=== PATIENT | male | born 1990 | race Caucasian/White ===

== ENCOUNTER → 2018-09-08 | Outpatient (CLI) | payer OTHER | LOC: M OUTALCOH 11:36 | PROVIDERS: ATTEND Psychiatry & Neurology Psychiatry | DX: F10.20 Alcohol dependence, uncomplicated (principal); F13.20 Sedative, hypnotic or anxiolytic dependence, uncomplicated ==

== ENCOUNTER 2019-12-22 23:09 | Inpatient (IN) | payer BC, OTHER, SELFPAY ==
[~2019-12-22] VITALS: Ht 185.4 cm; Wt 112.6 kg
[2019-12-22] MEDS ORDERED: QUET100T2 PO (23:19)
[2019-12-22] MEDS ORDERED: ALPR0.5T3 PO (23:19)
[2019-12-23] VITALS (19 sets, daily range): BP systolic 137–176; BP diastolic 77–113; O2SAT 97
[2019-12-23 00:43] LABS: ALBUMIN 3.3 GM/DL (3.2-5.2); ALT/SGPT 254 U/L (12-78); BILIRUBIN,DIRECT 0.1 MG/DL (0.0-0.2); BILIRUBIN,TOTAL 0.3 MG/DL (0.2-1.0); ETHYL ALCOHOL (ETHANOL) < 0.003 % (0.000-0.010); TOTAL PROTEIN 6.1 GM/DL (6.4-8.2)
[2019-12-23 00:50] LABS: BASO % 0.3 % (0.0-1.0); EOS # 0.1 10^3/uL (0.0-0.5); EOS % 0.5 % (0.0-3.0); HEMATOCRIT 29.6 % (42.0-52.0); HEMOGLOBIN 10.7 g/dl (13.5-17.5); LYMPH % 9.8 % (24.0-44.0); MEAN CORPUSCULAR HEMOGLOBIN 29.6 pg (27.0-33.0); MEAN CORPUSCULAR HGB CONC 36.1 g/dl (32.0-36.5); MEAN CORPUSCULAR VOLUME 81.8 fl (80.0-96.0); MONO # 0.5 10^3/uL (0.0-0.8); MONO % 5.4 % (0.0-5.0); NEUTROPHILS # 8.3 10^3/uL (1.5-8.5); NEUTROPHILS % 83.5 % (36.0-66.0); PLATELET COUNT, AUTOMATED 166 10^3/uL (150-450); RED BLOOD COUNT 3.62 10^6/uL (4.30-6.10); WHITE BLOOD COUNT 9.9 10^3/uL (4.0-10.0)
[2019-12-23] MEDS ORDERED: FUROSEMIDE 40MG/4ML VIAL (J1940) IV ONE (01:00)
[2019-12-23 01:12] LABS: ACETAMINOPHEN LEVEL < 2.0 UG/ML (10.0-30.0); MAGNESIUM LEVEL 2.8 MG/DL (1.8-2.4); SALICYLATE LEVEL < 1.7 MG/DL (5.0-30.0)
[2019-12-23] MEDS ORDERED: hydrALAZINE 20MG/ML 1ML VIAL (J0360 PER 20MG) IV ONE (01:30)
--- NOTE | 2019-12-23 01:39 | REP ---
Clinical: Shortness of breath. Comparison: 10/10/2005. Findings: Evaluation is limited by portable technique and underpenetration which accentuate the pulmonary vasculature. Cardiomegaly is suggested and early pulmonary vascular congestion/interstitial edema cannot be excluded. No discrete focal consolidation. No obvious effusion. No pneumothorax. Skeletal structures are intact. Impression: Cardiomegaly. Cannot exclude pulmonary vascular congestion/interstitial edema. Electronically Signed by Jose Luis Collins MD 12/23/2019 01:30 A
[2019-12-23 01:45] LABS: CPK CREATINE PHOSPHOKINASE 6295 U/L (39-308); MB/CK RELATIVE INDEX 0.17 (< OR =4); TROPONIN I 0.04 NG/ML (< 0.10)
[2019-12-23 02:16] LABS: APPEARANCE, URINE CLEAR (CLEAR); BACTERIA, URINE AUTO NEGATIVE (NEGATIVE); BILIRUBIN, URINE AUTO NEGATIVE (NEGATIVE); BLOOD, URINE BLOOD 2+ (NEGATIVE); COLOR, URINE YELLOW (YELLOW); GLUCOSE, URINE (UA) AUTO NEGATIVE (NEGATIVE); KETONE, URINE AUTO NEGATIVE (NEGATIVE); LEUKOCYTE ESTERASE, URINE AUTO NEGATIVE (NEGATIVE); NITRITE, URINE AUTO NEGATIVE (NEGATIVE); PROTEIN, URINE AUTO 2+ mg/dL (NEGATIVE); RBC, URINE AUTO 2 /HPF (0-3); SPECIFIC GRAVITY URINE AUTO 1.008 (1.002-1.035); SQUAMOUS EPITHELIAL CELL UR AU 0 /HPF (0-6); UROBILINOGEN, URINE AUTO 0.2 mg/dL (0.0-2.0); WBC, URINE AUTO 3 /HPF (0-3)
[2019-12-23 02:24] LABS: AMPHETAMINES LEVEL URINE NEGATIVE (NEGATIVE); BARBITURATES URINE NEGATIVE (NEGATIVE); BENZODIAZEPINES URINE POSITIVE (NEGATIVE); CANNABINOIDS URINE NEGATIVE (NEGATIVE); COCAINE METABOLITE URINE NEGATIVE (NEGATIVE); METHADONE URINE NEGATIVE (NEGATIVE); OPIATES URINE NEGATIVE (NEGATIVE); PHENCYCLIDINE URINE NEGATIVE (NEGATIVE)
--- NOTE | 2019-12-23 02:54 | HPEPDOC ---
[facility] Medical History & Physical Date of Admission Dec 23, 2019 Date of Service: Dec 23, 2019 Attending Physician: MONSE VERDUZCO MD History and Physical CHIEF COMPLAINT: Shortness of breath HISTORY OF PRESENT ILLNESS: 29-year-old male with past medical history of insomnia and anxiety presents with worsening shortness of breath for the past few days. His symptoms started 2-3 days ago with dyspnea, nausea/dry heaving, progressive fatigue and dry cough. Patient also reports a weight gain of 20 pounds over the past week or so. He went camping 5 days ago, apparently "fell" while he was camping and has cuts and bruises over his entire body. He also reports decreased urine output for the past week or so. He has no other symptoms at this time. He denies any chest pain, abdominal pain or diarrhea. In the ER, he is found to have acute renal failure and imaging consistent with cardiomegaly/congestive heart failure. Of note, he was a heavy drinker previously, reportedly quit 1 year ago. 10 point review of system is negative except for above PAST MEDICAL HISTORY: 1. Anxiety/insomnia. PAST SURGICAL HISTORY: 1. Tonsillectomy. SOCIAL HISTORY: Current smoker. Previous alcoholic, quit 1 year ago. Denies drug use FAMILY HISTORY: Father had heart disease ALLERGIES: Please see below. HOME MEDICATIONS: Please see below. PHYSICAL EXAMINATION: VITAL SIGNS: Please see below. GENERAL: No distress, obese HEENT: Normocephalic, atraumatic, moist mucous membranes NECK: Positive JVD CARDIOVASCULAR EXAMINATION: S1, S2, no murmurs RESPIRATORY EXAMINATION: Diminished, scattered rhonchi, poor air movement, no wheezing ABDOMINAL EXAMINATION: Soft, nontender, nondistended, positive bowel sounds EXTREMITIES: Bilateral lower shoulder pitting edema SKIN: Multiple scrapes and bruises along with ecchymosis over his entire body NEUROLOGICAL EXAMINATION: Alert and oriented 3, no focal deficits PSYCHIATRIC EXAMINATION: Calm and cooperative LABORATORY DATA: See below. IMAGING: Chest x-ray consistent with cardiomegaly MICROBIOLOGY: Please see below. ASSESSMENT: 29-year-old male with past medical history of anxiety and insomnia is being admitted for acute renal failure, cardiomegaly, congestive heart failure, hyponatremia. PLAN: 1. Congestive heart failure/cardiomegaly. Acute, unknown etiology, possibly viral, EKG without acute ST-T wave changes, vital stable, no indication for stat echocardiogram at this time, routine echocardiogram ordered, Lasix 40 mg IV every 6 hours, strict I's and O's, fluid restriction of 1200 ml day. 2. Acute hypoxemic respiratory failure. Patient currently on Ventimask on 40% FiO2, desating into the mid to low 80s, will switch over to BiPAP to assist with work of breathing as well as congestive heart failure. 3. Acute renal failure. Unknown etiology,? Cardiorenal, oliguric, will monitor with IV Lasix, consider nephrology consult in the morning. Patient has no acute indication for renal replacement therapy at this time. 4. Severe hyponatremia. unknown etiology, would not expect such severe hyponatremia from congestive heart failure/renal failure, reportedly no longer drinking alcohol, asymptomatic,? Psychogenic polydipsia in addition to CHF/CHANO/alcohol, repeat BMP. 5. Elevated LFTs. Possibly congestive hepatopathy, will trend. DVT prophylaxis: SCDs. GI prophylaxis: Not needed Vital Signs Vital Signs Date Time Temp Pulse Resp B/P (MAP) Pulse Ox O2 Delivery O2 Flow Rate FiO2 12/23/19 02:30 76 22 161/97 (118) 87 Venturi Mask 40 12/23/19 01:34 15.0 12/22/19 23:12 97.4 Laboratory Data Labs 24H Laboratory Tests 2 12/23/19 00:02: Immature Granulocyte % (Auto) 0.5, Neutrophils (%) (Auto) 83.5H, Lymphocytes (%) (Auto) 9.8L, Monocytes (%) (Auto) 5.4H, Eosinophils (%) (Auto) 0.5, Basophils (%) (Auto) 0.3, Neutrophils # (Auto) 8.3, Lymphocytes # (Auto) 1.0L, Monocytes # (Auto) 0.5, Eosinophils # (Auto) 0.1, Basophils # (Auto) 0.0, Nucleated Red Blood Cells % (auto) 0.0, Magnesium Level 2.8H, Total Bilirubin 0.3, Direct Bilirubin 0.1, Aspartate Amino Transf (AST/SGOT) 204H, Alanine Aminotransferase (ALT/SGPT) 254H, Alkaline Phosphatase 58, Total Creatine Kinase 6295H, Creatine Kinase MB 11.0H, Creatine Kinase MB Relative Index 0.17, Troponin I 0.04, Total Protein 6.1L, Albumin 3.3, Albumin/Globulin Ratio 1.2, Salicylates Level < 1.7L, Acetaminophen Level < 2.0L, Ethyl Alcohol Level < 0.003 12/23/19 00:19: POC Glucose (Misc Panel) 110H, POC Sodium (Misc Panel) 116*L, POC Potassium (Misc Panel) 3.9, POC Chloride (Misc Panel) 77L, POC Total CO2 (Misc Panel) 22.0L, POC Blood Urea Nitrogen (Misc Panel 78H, POC Ionized Calcium (Misc Panel) 3.7L, POC Lactate (Misc Panel) 1.08, POC Creatinine (Misc Panel) 13.0H, POC Hematocrit (Misc Panel) 33.0L 12/23/19 00:20: POC Total CO2 (Misc Panel) 23.0, POC pH (Misc Panel) 7.442, POC Base Excess (Misc Panel) -2.0, POC Saturated Percent O2 (Misc) 88L, POC pO2 (Misc Panel) 52.0L, POC pCO2 (Misc Panel) 32.8L, POC HCO3 (Misc Panel) 22.4 12/23/19 00:22: POC Prothrombin Time (Misc) 13.7, POC INR (Misc) 1.1 12/23/19 01:44: Urine Color YELLOW, Urine Appearance CLEAR, Urine pH 5.0, Urine Specific [place] 1.008, Urine Protein 2+H, Urine Glucose (Auto)(UA) NEGATIVE, Urine Ketones (Auto) NEGATIVE, Urine Blood 2+H, Urine Nitrite NEGATIVE, Urine Bilirubin NEGATIVE, Urine Urobilinogen 0.2, Urine Leukocyte Esterase (Auto) NEGATIVE, Urine WBC (Auto) 3, Urine RBC (Auto) 2, Urine Hyaline Casts (Auto) 0, Urine Bacteria (Auto) NEGATIVE, Urine Squamous Epithelial Cells 0, Urine Sperm (Auto) , Urine Opiates Screen NEGATIVE, Urine Methadone Screen NEGATIVE, Urine Barbiturates Screen NEGATIVE, Urine Phencyclidine Screen NEGATIVE, Urine Amphetamines Screen NEGATIVE, Urine Benzodiazepines Screen POSITIVEH, Urine Cocaine Metabolite Screen NEGATIVE, Urine Cannabinoids Screen NEGATIVE CBC/BMP Laboratory Tests 12/23/19 00:02 Home Medications Scheduled Quetiapine Fumarate (Quetiapine Fumarate) 100 Mg Tablet, 100 MG PO QHS Scheduled PRN Alprazolam (Alprazolam) 0.5 Mg Tablet, 0.5 MG PO QID PRN for ANXIETY/AGITATION Allergies Coded Allergies: No Known Allergies (Unverified , 12/22/19) A-FIB/CHADSVASC A-FIB History Current/History of A-Fib/PAF?: No MONSE VERDUZCO MD Dec 23, 2019 02:54
[2019-12-23] MEDS: FUROSEMIDE 40MG/4ML VIAL (J1940) IV SCH ×2 (03:14→08:07)
--- NOTE | 2019-12-23 03:16 | ECGEPIP ---
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
--- NOTE | 2019-12-23 03:24 | REPVR ---
PROCEDURE INFORMATION: Exam: CT Chest Without Contrast Exam date and time: 12/23/2019 2:30 AM Age: 29 years old Clinical indication: Shortness of breath; Additional info: Chf R/O pericardial effusion TECHNIQUE: Imaging protocol: Computed tomography of the chest without contrast. Radiation optimization: All CT scans at this facility use at least one of these dose optimization techniques: automated exposure control; mA and/or kV adjustment per patient size (includes targeted exams where dose is matched to clinical indication); or iterative reconstruction. COMPARISON: [place] Chest, 1 view 12/23/2019 12:21 AM FINDINGS: Degraded by motion. Lungs: Mild patchy bilateral predominantly perihilar ground-glass opacities and smooth interlobular septal thickening. Suspect pulmonary edema. Pleural space: Airspace consolidations in the bilateral lower lobes with trace bilateral pleural effusions. Heart: Unremarkable. No cardiomegaly. No pericardial effusion. Aorta: Unremarkable. No aortic aneurysm. Lymph nodes: Scattered subcentimeter nonspecific paratracheal lymph nodes. Bones/joints: Unremarkable. No acute fracture. Soft tissues: Unremarkable. IMPRESSION: Airspace consolidations in the bilateral lower lobes with trace bilateral pleural effusions. Mild patchy bilateral predominantly perihilar ground-glass opacities and smooth interlobular septal thickening. Suspect pulmonary edema. No evidence of a pericardial effusion. Electronically signed by: Reginald Simms On 12/23/2019 03:23:59 AM
--- NOTE | 2019-12-23 03:27 | REPVR ---
PROCEDURE INFORMATION: Exam: CT Abdomen And Pelvis Without Contrast Exam date and time: 12/23/2019 2:30 AM Age: 29 years old Clinical indication: Abdominal pain; Generalized; Patient HX: Renal failure; Additional info: Ascites, acute renal failure TECHNIQUE: Imaging protocol: Computed tomography of the abdomen and pelvis without contrast. Radiation optimization: All CT scans at this facility use at least one of these dose optimization techniques: automated exposure control; mA and/or kV adjustment per patient size (includes targeted exams where dose is matched to clinical indication); or iterative reconstruction. COMPARISON: No relevant prior studies available. FINDINGS: Degraded by motion. Liver: Mild hepatomegaly. Gallbladder and bile ducts: Normal. No calcified stones. No ductal dilation. Pancreas: Normal. No ductal dilation. Spleen: Normal. No splenomegaly. Adrenals: Normal. No mass. Kidneys and ureters: Normal. No hydronephrosis. Stomach and bowel: Moderate amount of stool in the colon suggestive constipation. Appendix: No evidence of appendicitis. Intraperitoneal space: Unremarkable. No free air. No significant fluid collection. Vasculature: Unremarkable. No abdominal aortic aneurysm. Lymph nodes: Unremarkable. No enlarged lymph nodes. Bladder: Urinary bladder wall thickening and stranding of the perivesical fat. Reproductive: Unremarkable as visualized. Bones/joints: Mild degenerative disease in the lower lumbar spine. Soft tissues: Unremarkable. Other findings: There is small extraperitoneal fluid in the presacral space and along the left pelvic sidewall extending to the space of Retzius. IMPRESSION: Degraded by motion. Urinary bladder wall thickening and stranding of the perivesical fat. There is small extraperitoneal fluid in the presacral space and along the left pelvic sidewall extending to the space of Retzius. Correlate with urinalysis for evidence of cystitis. No hydronephrosis. Electronically signed by: Reginald Simms On 12/23/2019 03:27:39 AM
[2019-12-23 04:28] LABS: ALBUMIN 3.2 GM/DL (3.2-5.2); BILIRUBIN,TOTAL 0.5 MG/DL (0.2-1.0); CALCIUM LEVEL 7.2 MG/DL (8.5-10.1); CREATININE FOR GFR 11.8 MG/DL (0.70-1.30); GLOMERULAR FILTRATION RATE 5.4 (>60); POTASSIUM SERUM 3.7 MEQ/L (3.5-5.1)
[2019-12-23] MEDS ORDERED: hydrALAZINE 20MG/ML 1ML VIAL (J0360 PER 20MG) IV PRN (04:45)
[2019-12-23] MEDS: ALPRAZolam 0.5 MG TAB PO PRN ×3 (06:43→18:31)
[2019-12-23 09:38] LABS: CALCIUM LEVEL 7.5 MG/DL (8.5-10.1); CREATININE FOR GFR 11.8 MG/DL (0.70-1.30); GLOMERULAR FILTRATION RATE 5.4 (>60)
[2019-12-23] MEDS ORDERED: PROMETHAZINE INJ 25 MG/ML VIAL (J2550) As Ordered ONE (09:52)
[2019-12-23] MEDS ORDERED: PROMETHAZINE INJ 25 MG/ML VIAL (J2550) IV ONE (10:00)
[2019-12-23] MEDS ORDERED: ONDANSETRON 4MG/2ML VIAL IV PRN (10:00)
[2019-12-23] MEDS ORDERED: LIDOCAINE 1% MDV 20ML VIAL As Ordered ONE (10:36)
[2019-12-23 10:50] LABS: C REACTIVE PROTEIN QUANTITATIV 4.52 MG/DL (0.00-0.30); NT-PRO BNP 5909 PG/ML (<125)
[2019-12-23 11:06] LABS: HEPATITIS B SURFACE ANTIGEN NEGATIVE (NEGATIVE)
[2019-12-23 11:16] LABS: HEMOGLOBIN A1c 5.6 %
[2019-12-23 11:33] LABS: HEPATITIS C VIRUS ABY INDEX 0.2 INDEX (<0.8)
[2019-12-23 11:34] LABS: HEPATITIS B CORE ANTIBODY IGM NEGATIVE (NEGATIVE)
[2019-12-23 11:35] LABS: HEPATITIS A ANTIBODY IGM NEGATIVE (NEGATIVE)
--- NOTE | 2019-12-23 11:39 | REP ---
REASON: Recent central line placement. COMPARISON: 12/23/2019 earlier today. The technique utilized in obtaining the radiograph has magnified the cardiac silhouette and accentuated the interstitial markings. Once again, there is cardiomegaly accentuated by technique. The interstitial markings are diffusely increased representing a change from the prior exam. Since the last exam, a right-sided internal jugular central venous catheter has been placed, the tip of which is in the superior vena cava. There is no pneumothorax. There is no change in the osseous structures. IMPRESSION: 1. Interstitial edema. 2. Central venous catheter, as described above. 3. Cardiomegaly. Electronically Signed by Steven Travis DO 12/23/2019 03:04 P
--- NOTE | 2019-12-23 11:41 | RO ---
DATE OF PROCEDURE: 12/23/2019 PREPROCEDURE DIAGNOSIS: Acute renal failure. POSTPROCEDURE DIAGNOSIS: Acute renal failure. PROCEDURE: Right internal jugular venous dialysis catheter. SURGEON: Cameron Harrell DO PHARMACY TECHNOLOGY INSTRUCTOR:None ANESTHESIA: 7 mL of subcutaneous lidocaine 1% without epinephrine. DESCRIPTION OF PROCEDURE: After informed consent was reviewed with the patient in the intensive care unit (ICU),he gave verbal permission for me to place a central line. He also gave permission for a dialysis catheter. permission for dialysis treatment and any other life-saving treatment involved in his ICU care. Due to the urgency and the fact that he was fairly shaky and decompensated, consent form was not signed but verbal consent was witnessed by two nurses. The patient was prepped and draped in a sterile manner. Chlorhexidine was used over the right internal jugular (IJ). Full sterile barrier precautions were used. Ultrasound was then used under sterile technique to identify the right IJ. The right IJ was very large. No significant change with respiration. Central venous pressure (CVP) estimated to be at least 14. 1% lidocaine was then introduced subcutaneously. The Booker syringe was then inserted into the right IJ. There was instant return of venous blood flow on the first pass. The wire was fed through the needle and needle was removed. A meghan in the skin was made adjacent to the wire. The patient's with skin was then dilated with two dilators. The 15 cm dialysis catheter was then placed. Wire was removed. There was instant return of venous blood flow. Both ports were initially flushed with saline followed by heparin 1.2 mL for the venous port and 1.0 mL for the arterial port. They were capped and clamped. Sutured in place. Sterile impregnated dressing was placed over the site. There were no observed complications. Chest x-ray shows catheter in good position without any evidence of pneumothorax. MTDD
--- NOTE | 2019-12-23 13:54 | CCN ---
DATE: 12/23/2019 CRITICAL CARE TIME: One hour and 17 minutes this excludes all procedures. I was called urgently by Dr. Hu to see this patient with severe hypoxia. The patient was on C-PAP. She had been wondering whether or not he required a different form of respiratory therapy. On my arrival to the room, the patient was quite anxious and having difficulty breathing. He was actually gagging and I removed the C-PAP. He has a vomit bag next to him, has not vomited as of yet. His story begins this past weekend. He states he [place] and [place]. He believes he may have been slightly dehydrated on that day. Since that day, he has noticed more and more swelling/edema and less urine output. He states he was drinking more fluid than usual. His shortness of breath became progressively worse. Reportedly has a 20 pound weight gain over the past week. He did use ibuprofen for the pain from falling; and on further questioning about his medication, he has been taking Kratom, which is tropical mitragynine, has opioid like factors. Based on my a current limited research, there is no renal toxicity with this medication, but I am currently performing additional research on this medication. Today he feels very short of breath. I switched him over Vapotherm at bedside. He is much more comfortable on Vapotherm. He has no IV fluids running. He was getting IV Lasix and Seroquel. I have discontinued his Seroquel until after dialysis. The patient denies cough, fever, chills. Denies recent illness. Denies abdominal pain. His main complaint is that of shortness of breath. PAST MEDICAL HISTORY: 1. Anxiety. 2. Insomnia. 3. History of alcohol abuse requiring detoxification. 4. History of tonsillectomy. SOCIAL HISTORY: The patient is a current smoker, who reportedly quit using alcohol year ago after going through detoxification, but states this was his first time using it again. Otherwise, he states he has been on the wagon. He denies any illicit drug use; however, when I further questioned him, he reveals that he is ordering medications over the internet and the form of Kratom. FAMILY HISTORY: Known family history of heart disease. His mother is alive and well. PHYSICAL EXAM: Temperature is 97.8, pulse is 70, respiratory rate is 20, blood pressure is 154/98, was as high as 176/102 with a mean arterial pressure of 126, oxygen saturation on C-PAP at 40% FiO2 with a C-PAP of 8 cm of water pressure was 98. Currently, the patient is on high-flow Vapotherm with an oxygen saturation of 90%, oxygen flow rate of 20 liters with an FiO2 of 0.6. General: The patient appears less dyspneic, but is still quite dyspneic with minimal movement. HEENT: Sclerae clear and anicteric. Pupils equal, react to light. Mucous membranes are moist without lesions. Oropharynx without erythema or exudate. Mallampati 4. Neck is large circumference. There is elevated JVP. Carotid stroke is brisk without bruit. Pulmonary: Diffuse rales without rhonchi or wheeze. No dullness to percussion. Poor chest expansion. Cardiac: Distant S1-S2 without audible murmur, rub or gallop. There is elevated JVP. There is significant systemic edema. There is bilateral lower extremity pitting edema to the level of the knee. Abdomen is obese, soft, nontender, nondistended. No hepatosplenomegaly, masses or hernia. Extremities: No cyanosis, clubbing or edema. There is multiple superficial lacerations. There is no evidence of deep tissue injury. I have examined his entire body surface to ensure there is no evidence of compartment syndrome. No evidence of cellulitis. Musculoskeletal: Normal muscle tone. No evidence of unilateral weakness. Neuro: No tremor. No unilateral weakness. No myoclonus. Laboratory evaluation shows a severe hyponatremia at 117, potassium 4.0, chloride 77, bicarb was 23, anion gap was 17, BUN of 78, creatinine of 11.8, fasting glucose is 106. Calcium is 7.5, BNP was 5909 and CRP is 4.52, AST, ALT is 184-50, albumin is low at 3.2. White blood cell count is 9.9, hemoglobin is 10.7, platelet count is 166 Chest x-ray was reviewed showing significant cardiomegaly, poor chest expansion, significant bilateral pulmonary edema with vascular congestion blunting of the left costophrenic angle. No evidence of pneumonia mass. Trachea is midline. No significant chest wall trauma. IMPRESSION: 1. Severe hypoxia from pulmonary edema likely from renal failure. Will continue high-flow Vapotherm until the patient receives dialysis. 2. Acute renal failure. The patient requiring urgent. I placed dialysis catheter in the right IJ. The exact cause of the renal failure has not yet been identified, hopefully this is a reversible cause. Possibly secondary to dehydration in the face of ibuprofen. We will continue to look for other causes of renal failure. 3. Severe hyponatremia likely related to volume overload. The patient having no signs of hyponatremia side effects at this point in time; however is at risk. Will monitor closely for neurologic symptoms. 4. Severe acidosis likely from renal failure. 5. Obesity. I do not see where her thyroid has been tested; will test this during this hospitalization. 6. Anxiety. Avoiding medication until renal impairment improved unless the patient becomes un-consolable. Will adjust treatment as the patient's clinical status improves. ADVANCED DIRECTIVES: The patient wants to be full code. He wants everything done to save his life including dialysis, life support, mechanical ventilation. MTDD
[2019-12-23 15:25] LABS: CALCIUM LEVEL 8.7 MG/DL (8.5-10.1); CREATININE FOR GFR 7.41 MG/DL (0.70-1.30); GLOMERULAR FILTRATION RATE 9.2 (>60); POTASSIUM SERUM 3.9 MEQ/L (3.5-5.1)
--- NOTE | 2019-12-23 16:42 | IPN ---
DATE: 12/23/2019 The patient is complaining of nausea and is vomiting at the bedside. Blood pressure is 175/113. Sodium level of 117. The patient was placed on continuous positive airway pressure (CPAP) overnight due to hypoxia from heart failure and fluid overload. The patient remains with oliguric renal failure complicated by pulmonary edema, hyponatremia, oliguria with high anion gap acidosis, being checked for diabetes. The patient is agreeable to moving forward with hemodialysis this morning. Dr. Cameron Harrell has been consulted for management of severe hypoxia and Dr. Way for emergent dialysis. The patient complains of headache, vomiting, nausea, and abdominal pain. Temperature 97.8, pulse 70, respiratory rate 20, blood pressure is 175/113, 97% on 40% fraction of inspired oxygen (FiO2) on CPAP, currently on four liters nasal cannula saturating 92%. GENERAL: The patient is awake, alert and oriented to person, place and time. He is in moderate distress, vomiting at the bedside with use of respiratory accessory muscles, unable to speak in full sentences with 4-5 word conversational dyspnea. LUNGS: Diminished with bilateral rales. HEART: S1, S2, sinus rhythm. ABDOMEN: Distended. Positive bowel sounds. No rebound or guarding. EXTREMITIES: Positive edema. LABORATORY DATA: White count 9.9, hemoglobin 10, hematocrit 29, platelet count 166. Sodium 117, potassium 4, chloride 77, bicarbonate 17, BUN 78, creatinine 11.8, glucose of 106, BNP 5909, total CK 6295, AST 184, ALT 250. ASSESSMENT AND PLAN: This is a 29-year-old with a history of anxiety and insomnia who presents after having a fall about three days ago at a camp with bruises and cuts all over the body, had taken for the past week multiple doses of ibuprofen and presents after having vomited several times at home with acute renal failure, creatinine of 11, severe hyponatremia and fluid overload with significant pulmonary edema. ACTIVE ISSUES: 1. Acute kidney injury requiring emergent hemodialysis due to hyponatremia, pulmonary edema and high anion gap. At this time, Dr. Cameron Harrell has been consulted for line placement. Dr. Way will arrange for emergency dialysis. 2. The patient's urinalysis (UA) had some proteinuria and positive for blood. We will rule out glomerular disease. Check antinuclear antibody (PRASHANT) screen, urine electrolytes, hepatitis serology, and cryoglobulins. The patient's mother has been informed, Kira Fowler, phone number [phone]. [facility]
[2019-12-23] MEDS: NICOTINE 14 MG/24 HR TRANSDERMAL TD SCH (20:02)
--- NOTE | 2019-12-23 20:12 | ECHO ---
DATE OF PROCEDURE: 12/23/2019 DATE OF : 1990 AGE: 29 REFERRING PROVIDER: Dr. Leroy PATIENT LOCATION: Room 3204 REASON FOR THE STUDY: Congestive heart failure. 2D MEASUREMENTS: IVS: 1.3 cm LV: 5.1 cm LVPW: 1.2 cm LA: 4.4 cm Aorta: 2.4 cm IVC: 2.7 cm DOPPLER MEASUREMENT: Peak velocity across the aortic valve: 1.2 meters per second Peak velocity across the LVOT: 0.79 meters per second Mitral E: 0.68, Mitral A: 0.36 with a ratio of 1.9 Maximum tricuspid valve velocity: 1.9 meters per second 2D COMMENTS: 1. Normal left ventricular size with mildly increased left ventricular wall thickness. Left ventricular systolic function is normal, estimated at 60-65%. 2. The left atrium appeared to be mildly enlarged. Normal right atrium and right ventricle. 3. The atrial septum appeared to be normal without evidence of defect or shunt. 4. Normal aortic root. 5. A small pericardial effusion was noted, no evidence of cardiac tamponade. 6. The aortic valve, mitral valve, tricuspid valve, and pulmonic valve appeared to be normal. The proximal pulmonary artery branches were not well visualized. 7. The inferior vena cava was mildly enlarged, central venous pressure might be elevated. DOPPLER: It detects trace mitral regurgitation, trace tricuspid regurgitation, and trace pulmonic regurgitation. The calculated pulmonary artery systolic pressure was normal. Assessment of the left ventricular diastolic function appeared to be normal. IMPRESSION: 1. Normal global left ventricular systolic and diastolic function. 2. Trace mitral regurgitation. The left atrium appeared to be mildly enlarged. 3. Trace tricuspid regurgitation with a normal calculated pulmonary artery systolic pressure. 4. Trace pulmonic regurgitation. 5. A small pericardial effusion noted, no evidence of cardiac tamponade.
[2019-12-23] MEDS ORDERED: QUEtiapine FUMARATE 100 MG TAB PO SCH (21:00)
[2019-12-23 21:42] LABS: CALCIUM LEVEL 8.3 MG/DL (8.5-10.1); CREATININE FOR GFR 9.05 MG/DL (0.70-1.30); GLOMERULAR FILTRATION RATE 7.3 (>60); POTASSIUM SERUM 4.1 MEQ/L (3.5-5.1)
[2019-12-24] VITALS (26 sets, daily range): BP systolic 144–177; BP diastolic 66–105
[2019-12-24] MEDS: ALPRAZolam 0.5 MG TAB PO PRN ×4 (00:03→23:27)
[2019-12-24 04:50] LABS: HEMATOCRIT 28.5 % (42.0-52.0); HEMOGLOBIN 10.1 g/dl (13.5-17.5); MEAN CORPUSCULAR HEMOGLOBIN 29.3 pg (27.0-33.0); MEAN CORPUSCULAR HGB CONC 35.4 g/dl (32.0-36.5); MEAN CORPUSCULAR VOLUME 82.6 fl (80.0-96.0); PLATELET COUNT, AUTOMATED 187 10^3/uL (150-450); RED BLOOD COUNT 3.45 10^6/uL (4.30-6.10); WHITE BLOOD COUNT 7.9 10^3/uL (4.0-10.0)
[2019-12-24 05:17] LABS: CALCIUM LEVEL 8.2 MG/DL (8.5-10.1); CREATININE FOR GFR 9.72 MG/DL (0.70-1.30); GLOMERULAR FILTRATION RATE 6.7 (>60); POTASSIUM SERUM 4.2 MEQ/L (3.5-5.1)
[2019-12-24 09:06] LABS: ALBUMIN 2.9 GM/DL (3.2-5.2); BILIRUBIN,DIRECT 0.1 MG/DL (0.0-0.2); BILIRUBIN,TOTAL 0.4 MG/DL (0.2-1.0); THYROID STIMULATING HORMONE 1.67 uIU/ML (0.358-3.740); TOTAL PROTEIN 5.8 GM/DL (6.4-8.2)
[2019-12-24] MEDS: **hydrALAZINE** 10 MG TAB PO SCH ×4 (09:30→21:02)
[2019-12-24] MEDS: amLODIPine 5 MG TAB PO SCH ×2 (09:30→21:02)
[2019-12-24] MEDS: NICOTINE 14 MG/24 HR TRANSDERMAL TD SCH (09:30)
--- NOTE | 2019-12-24 09:42 | CR ---
DATE OF CONSULTATION: 12/23/2019 CONSULTATION FOR: Dimple Roberts MD REASON FOR CONSULTATION: Shortness of breath and acute renal failure. HISTORY OF PRESENT ILLNESS: Mr. Fowler is a 29-year-old gentleman with known history of anxiety and heavy alcohol use. He was admitted to [facility] last evening due to shortness of breath. Apparently, his creatinine was 11, however, nephrology service was not consulted until about 10:[address] Roberts when she reported his laboratories consulted me, and I have seen the patient in intensive care unit immediately. Apparently, his creatinine was 11, and he was hypertensive. He has failed to respond to diuretics, and he was placed on bilateral positive airway pressure (BiPAP). He has now been seen by Dr. Harrell, and she is managing his respiratory insufficiency with high-flow oxygen. Dr. Harrell was also kind enough to provide internal jugular catheter for dialysis. PAST MEDICAL AND SURGICAL HISTORY: Significant for anxiety and insomnia. PAST SURGICAL HISTORY: Is significant for tonsillectomy. MEDICATIONS: Home medications only include alprazolam 0.5 mg as needed for anxiety and Seroquel 100 mg at bedtime. ALLERGIES: The patient has no known drug allergies.. PERSONAL AND SOCIAL HISTORY: He is a current smoker and has a history of heavy alcohol use which he quit about a year ago but has resumed. FAMILY HISTORY: Is negative for end-stage renal disease. REVIEW OF SYSTEMS: The patient is quite short of breath. He reports that he has not been feeling well for over a week. Thursday he started feeling poorly and has started to develop swelling. He also reports decreased urine output and generalized pains and aches. He has been taking ibuprofen for pain. Ears, nose, and throat are unremarkable. Cardiovascular system: Significant for shortness of breath and generalized edema. Respiratory system is negative for hemoptysis or pleuritic type of chest pain. He is very short of breath. Gastrointestinal (GI) system is negative for vomiting or diarrhea. Genitourinary () system is significant for decreased urine output. He denies any history of kidney stones. Endocrine system: Negative for diabetes or thyroid problems. Hematological system is negative for anticoagulation. Psychosocial system is significant for anxiety and insomnia. PHYSICAL EXAMINATION: Temperature is 97.8 degrees Fahrenheit, heart rate 80 per minute, and respiratory rate 24 per minute. Blood pressure 155/88 mmHg and oxygen saturation 95% on high-flow cannula with 40% oxygen. Head is atraumatic. There is no oral thrush or ulcers. He is using oxygen via high-flow cannula. Neck veins are markedly distended, and I do not feel any abnormal lymph nodes or thyroid enlargement. Heart sounds are regular, and there is no pericardial friction rub. Lungs: Have bilateral rales and diminished breath sounds at bases. Abdomen: Soft, obese, and nontender, and bowel sounds are normal. Extremities: Without any cyanosis or clubbing. Lower extremity edema is noticed. Neurologically, he is awake and without a focal deficit at present. LABORATORY DATA: His urinalysis showed 2+ protein and 2+ blood with only 3 WBCs and 2 RBCs. His admission chemistry showed a sodium level 119, potassium 3.7, chloride 77, BUN 79, and creatinine 11.8. Calcium level 7.2, AST 184, and ALT 250. Total protein 6.0 and albumin 3.2. A BNP level is 5909. A repeat chemistry has just some back and showed sodium 117, potassium 4.0, BUN 78, and creatinine still 11.8. PROBLEMS: 1. Acute renal failure. No previous laboratories available, and the patient feels that he probably had some laboratory work in August 2018, but I could not find any records. At this point, we will assume that his renal failure is mostly acute in view of normal-looking kidneys on his CAT scan of abdomen and pelvis and no known history for chronic kidney disease. The patient had advanced renal failure and very short of breath. He has failed to diurese and will need urgent dialysis. We have already discussed with the patient and also discussed with Dr. Roberts and Dr. Harrell. Urgent hemodialysis is being arranged. 2. Shortness of breath. The patient is volume overloaded, and his imaging studies are consistent with congestive heart failure and pulmonary edema. We will try to remove 3 liters of fluid today and another 3 liters of fluid tomorrow. Urgent dialysis is being arranged. 3. Hyponatremia. Sodium level is still low and is worsened now. We will gradually try to correct it with dialysis. We will use 130 mEq sodium in hemodialysis bath today and will try to bring his sodium level up to about 125 mEq range Further correction will be done with next dialysis tomorrow. 4. Anemia. His anemia is moderate and stable at present. We will not need any urgent intervention. It remains to be seen how his kidney function and anemia improves over next days to weeks. Thank you for involving me in the care of Mr. Fowler. I will follow him along with you. MARCIO
--- NOTE | 2019-12-24 10:15 | CCN ---
DATE: 12/24/2019 DIAGNOSIS: Hypoxia. Critical care time was 42 minutes. This excludes all procedures. HISTORY OF PRESENT ILLNESS: Mr. Fowler has required less oxygen overnight. Underwent dialysis yesterday. Reportedly, net negative 3 liters. He is making small amounts of urine but remains in oliguric renal failure. No ectopy overnight. His medications had been restarted in the form of Seroquel and Xanax despite my discontinuation. PHYSICAL EXAM: Temperature is 98.9, pulse is 68, respiratory rate is 18, blood pressure is 150/98, oxygen saturation is 98% on 5 liters. Urine output is negative 3.2 liters. General: Awake, alert, and oriented. Affect and mood appropriate. Nutrition and hygiene appear fair. HEENT: Sclerae clear and anicteric. Pupils equal, react to light. Mucous membranes are moist. Neck: He has a right internal jugular (IJ) dialysis catheter in place. No surrounding erythema or exudate. Cardiac: Regular S1, S2, without audible murmur, rub, or gallop. There continues to be some elevated JVP. Heart sounds overall distant. Pulmonary: Better inspiration. No rales, rhonchi, or wheezes. No dullness to percussion. No prolongation in expiratory phase. Abdomen: Obese, soft, nontender, and nondistended. No hepatosplenomegaly, masses, or hernia. Extremities: Much less edema. No significant pitting in the lower extremities. Nails without clubbing or cyanosis. Musculoskeletal: Normal muscle development. Skin: Superficial excoriations. No evidence of deep lacerations or large contusions. LABORATORY EVALUATION: Shows a white blood cell count of 7.9, hemoglobin 10.1, hematocrit of 28.5, platelet count of 187. Sodium improved to 123. Potassium is 4.2, chloride 87, bicarbonate 24, BUN of 53, creatinine of 9.72, and anion gap of 12. CK and liver enzymes were not obtained this morning. Chest x-ray shows significant improvement in the vascular congestion with minimal vascular congestion remaining. Echocardiogram was obtained yesterday, which shows normal global left ventricular systolic and diastolic function. There was a trace amount of mitral regurgitation with the left atrium appearing mildly enlarged. The trace TR shows normal pulmonary artery systolic pressure, which I think would be interesting given the significant central venous pressure (CVP) elevation yesterday when this was performed. There is a small pericardial effusion without evidence or pericardial effusion. IMPRESSION: 1. Hypoxia from pulmonary edema, and oxygen requirements are decreasing with the use of dialysis. 2. Acute renal failure. We will recheck CK. Dr. Way from nephrology following the patient planned to remove quite a bit of fluid today. Patient is slightly hypertensive; however, dialysis is ongoing. 3. Elevated liver enzymes. We will recheck liver profile. I discontinued the Seroquel due to elevated liver enzymes and the fact that the patient appeared calm. This was reordered by the primary team. I would recommend at least decreasing the dose, if not discontinuing Seroquel for the time being. 4. Obesity. Checking thyroid-stimulating hormone (TSH). No evidence of significant hyperglycemia to suggest underlying diabetes. 5. Smoking cessation. Recommend counseling at the time of discharge. MTDD
--- NOTE | 2019-12-24 11:16 | IPN ---
DATE OF SERVICE: 12/24/2019 This morning he says that the breathing is improved but still persistent. He has not been out of bed. He denies chest pain, pressure, or tightness. Has a slight headache this morning. Blood pressure remains elevated at 150/98. No nausea or vomiting. The patient had dialysis yesterday emergently with 3 liters removed. The patient's sodium level is improved to 123 from admission of 119 yesterday. The patient otherwise denies any confusion, changes in his vision. No seizure activity overnight. Overnight, the patient had urine output of 385 since midnight. Currently still nothing by mouth. Off of the Vapotherm currently on 4 liters nasal cannula. PHYSICAL EXAMINATION: Temperature 98.9, pulse 68, respiratory rate 18, blood pressure 150/98, 97% on 4 liters nasal cannula. Generally, the patient is awake, alert, oriented to person, place, and time. Face is symmetric. Tongue is midline. Positive jugular venous distention (JVD). No thyromegaly or cervical lymphadenopathy. Moist mucous membranes. Lungs are diminished. Bilateral crackles. Heart: S1, S2, sinus rhythm. No murmurs, rubs, or gallops. Abdomen is obese, soft, nontender, nondistended. Positive bowel sounds. Extremities: Positive edema. LABORATORY DATA: White count 7.9, hemoglobin 10, hematocrit 28, platelet count 187. Sodium 123, potassium 4.2, chloride 87, bicarbonate 24, BUN 53, creatinine of 9.72, glucose of 83, calcium of 8.2. ASSESSMENT AND PLAN: This is a 29-year-old male with history of anxiety and insomnia who presents to the emergency room after having a fall and camping with bruises and cuts, nausea, and vomiting at home, and ibuprofen taken for pain, presented with acute kidney injury with creatinine of 11, severe hyponatremia, sodium of 116, and pulmonary edema. The patient currently has the following issues: 1. Acute renal failure requiring emergent hemodialysis due to hyponatremia, fluid overload, high anion gap. Dr. Harrell had placed a dialysis catheter on 12/23/2019 and managed the patient's hypoxia with a Vapotherm currently improved after 3 liters of fluid removed via dialysis yesterday. He is currently on [address] Way, nephrology, had seen the patient and arranged for emergency dialysis with significant improvement in his volume status and respiratory status. Currently off Vapotherm. 3 liters have been removed. He remains with oliguric renal failure and had less than 500 urine output overnight on his own via Arrington catheter. 2. Hypertensive emergency, most likely secondary to fluid overload and renal failure. The patient is currently on intravenous (IV) hydralazine, complaining of a headache. He may be started on oral medications; and since he is not requiring a Vapotherm, may be transferred to medical-surgical floor. The patient will be placed on hydralazine four times a day. No angiotensin-converting enzyme (RADHA) inhibitors due to renal failure. Norvasc 5 mg twice a day. Hold for systolic pressure less than 140 3. Hyponatremia. The patient complains of slight headache. No seizure activity, blurred vision, decrease in concentration. Sodium level had changed from 119 at 3:30 a.m. on 12/23/2019 to 123 at 4:30 a.m. this morning. Trying to avoid more than 10-12 mEq over the past 24 hours. This is most likely due to episodes of vomiting and at home. Currently, managed by nephrology via hemodialysis. 4. Obesity. Body mass index (BMI) of 34.2. Will check lipid panel. Weight loss as outpatient. DISPOSITION: May transfer to medical-surgical floor, telemetry. [facility]NELL MEDICAL CENTERJamarcus
[2019-12-24 12:12] LABS: CRYOGLOBULINS NEGATIVE (NEGATIVE)
[2019-12-24 12:30] LABS: PERCENT SATURATION 8.2 % (19.7-50.0)
--- NOTE | 2019-12-24 15:54 | REPVR ---
PROCEDURE INFORMATION: Exam: US Duplex Artery and Vein of the Abdominal and/or Reproductive Organs, Complete Kidneys Exam date and time: 12/24/2019 2:10 PM Age: 29 years old Clinical indication: Abnormal findings; Abnormal lab test; Abnormal kidney function lab tests; Additional info: R/O yudi mukesh TECHNIQUE: Imaging protocol: Real-time duplex ultrasound scan of the arterial and venous flow with color Doppler flow and spectral waveform analysis with image documentation. Complete duplex exam focused on the kidneys. Duplex images required to evaluate vascular conditions. COMPARISON: No relevant prior studies available. FINDINGS: Right kidney: 12.2 cm in length. No hydronephrosis. No masses. Right renal arteries: Normal duplex of the renal artery. Duplex waveforms are within normal limits. No hemodynamically significant stenosis. Right renal vein: Patent. Left kidney: 12.2 cm in length. No hydronephrosis. No masses. Left renal arteries: Normal duplex of the renal artery. Duplex waveforms are within normal limits. No hemodynamically significant stenosis Left renal vein: Patent. IMPRESSION: No hemodynamically significant stenosis. Electronically signed by: Chung Penny On 12/24/2019 15:54:05 PM
--- NOTE | 2019-12-24 16:18 | REP ---
Single view chest: 12/24/2019. Indication: Dyspnea. Comparison: Yesterday. Findings: Prominent interstitial markings remain but are less conspicuous. Right-sided IJ central venous catheter is unchanged in position. Mild cardiomegaly persists. There is no pleural effusion or pneumothorax. Impression: Decreased interstitial edema compared to yesterday. Electronically Signed by Chas Mobley DO 12/24/2019 04:08 P
[2019-12-24] MEDS ORDERED: IRON SUCROSE 100MG 5ML VIAL (J1756 PER 1MG) IV SCH (19:45)
[2019-12-24] MEDS ORDERED: QUEtiapine FUMARATE 100 MG TAB PO SCH (21:00)
[2019-12-24] MEDS: QUEtiapine FUMARATE 50 MG TAB PO SCH (21:01)
[2019-12-25 06:00] VITALS: BP 146/84
[2019-12-25 06:54] LABS: HEMOGLOBIN 11.4 g/dl (13.5-17.5); MEAN CORPUSCULAR HEMOGLOBIN 29.8 pg (27.0-33.0); MEAN CORPUSCULAR HGB CONC 35.6 g/dl (32.0-36.5); MEAN CORPUSCULAR VOLUME 83.8 fl (80.0-96.0); PLATELET COUNT, AUTOMATED 224 10^3/uL (150-450); RED BLOOD COUNT 3.82 10^6/uL (4.30-6.10); WHITE BLOOD COUNT 7.6 10^3/uL (4.0-10.0)
[2019-12-25 07:23] LABS: CALCIUM LEVEL 8.5 MG/DL (8.5-10.1); CREATININE FOR GFR 9.19 MG/DL (0.70-1.30); GLOMERULAR FILTRATION RATE 7.2 (>60)
[2019-12-25] MEDS: NICOTINE 14 MG/24 HR TRANSDERMAL TD SCH (09:03)
[2019-12-25] MEDS: amLODIPine 5 MG TAB PO SCH ×2 (09:04→21:18)
[2019-12-25] MEDS: **hydrALAZINE** 10 MG TAB PO SCH ×4 (09:04→21:17)
[2019-12-25] MEDS: ALPRAZolam 0.5 MG TAB PO PRN ×3 (09:10→18:25)
--- NOTE | 2019-12-25 09:31 | IPN ---
DATE: 12/24/2019 SUBJECTIVE: Patient was seen and examined at the bedside today morning in the intensive care unit (ICU) during hemodialysis procedure. He was tolerating the hemodialysis procedure well. He was dialyzed yesterday, and 3 liters of fluid was removed. Patient is off the nasal cannula and reports his shortness of breath is significantly better today. Hyponatremia is mild persistent but better than yesterday. Patient remains oliguric at this point. OBJECTIVE: Vital signs: Temperature is 98.9 degrees Fahrenheit, blood pressure 146/70, pulse is 93, respiratory rate of 20, saturating 93% on room air. Intake and output: Urine output recorded as 455 mL since overnight. Ultrafiltration with hemodialysis was 3 liters. Weight on the bed scale is 117.5 kg. PHYSICAL EXAMINATION: General: Patient is awake, alert, oriented times three, laying in bed, getting hemodialysis done. Head and neck exam: Extraocular muscles intact. Pupils equally round and reactive to light. Mucous membranes are moist. Neck is supple. He has a right internal jugular (IJ) nontunneled hemodialysis catheter. Cardiovascular: S1, S2, regular rate. 1+ edema of the bilateral lower extremities. Respiratory: Mildly decreased breath sounds at the bases. Mild inspiratory crackles at the bases. Abdomen: Is soft. Positive bowel sounds. Nontender. No organomegaly. Genitourinary: He has an indwelling Arrington catheter. Urine in the bag is clear. There is no hematuria noted. Musculoskeletal: No clubbing or cyanosis. Pulses are 2+. 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 Power is 5/5 in all extremities. LAB REVIEW: CBC showed a WBC of 7.9, hemoglobin 10.1, platelets of 187. BMP showed sodium 123, potassium 4.2, chloride 87, bicarbonate 24, BUN 53, creatinine is 9.7, calcium 8.2, iron is 22, TIBC 268, transferrin saturation is 8.2, ferritin is 284, AST 89, ALT 181, alkaline phosphatase is 55, creatinine kinase is 2567, albumin 2.9. Immunology: All the autoimmune serology is pending. Hepatitis B and hepatitis C are negative. IMAGING: A renal ultrasound was done today, which showed no renal artery stenosis. Right kidney is 12.2 cm, and left kidney is 12.2 cm as well. CURRENT INPATIENT MEDICATIONS: I have ordered intravenous (IV) Venofer for iron deficiency anemia. ASSESSMENT AND PLAN: 1. Acute renal failure. Patient has oliguric renal failure, unknown etiology at this time. All the autoimmune serology is pending. I have added antiglomerular basement membrane antibodies, hxcl-[id number] DNA antibodies, and also 24-hour urine protein and creatinine. 2. Acute decompensated congestive heart failure with fluid overload. Patient was emergently dialyzed yesterday. Echocardiogram showed left ventricular ejection fraction 60-65%. Four more liters of fluid will be removed today to optimize his volume status. 3. Hyponatremia. Patient has hypervolemic hyponatremia. Sodium is improved to 123. It would further improve with dialysis, and the goal is to improve his sodium up to 135 in the next 48 hours. 4. Iron deficiency anemia. Patient has been started on IV Venofer for dialysis. No need of Aranesp administration at this time. 5. Hypertension with hypertensive heart disease. Continue current dose of amlodipine and hydralazine. Once the volume status gets better, his blood pressures will improve. Total critical care time spent in the management of this patient today morning in the ICU excluding all the procedures was 40 minutes.
--- NOTE | 2019-12-25 10:40 | REP ---
Single view chest: 12/25/2019. Indication: Dyspnea. Comparison: Yesterday. Findings: Right-sided at IJ central venous catheter is stable in position. Mildly increased interstitial markings persist. Mild cardiomegaly is again noted. There is no pleural effusion or pneumothorax. Impression: Stable examination compared to yesterday. Mildly increased interstitial markings consistent with interstitial edema. Electronically Signed by Chas Mobley DO 12/25/2019 10:31 A
--- NOTE | 2019-12-25 10:51 | IPN ---
DATE OF SERVICE: 12/25/2019 The patient said that his breathing is much improved. He is ambulating well without any dyspnea on exertion. No chest pain, pressure, tightness, palpitations, or lightheadedness. Despite blood pressure of 146/84, the patient denies any headache, changes in vision, changes in cognition. Renal ultrasound yesterday was negative for renal artery stenosis. He was afebrile. No chills. The patient was worried that his previous use of prescription drugs and alcohol abuse may have affected his kidney. He was reassured that these worked with the liver. The patient denied any other nonsteroidal antiinflammatory drug (NSAID) use aside from ibuprofen 800 mg three times a day prior to coming in to the hospital. Urine output has been minimal. He says he tried to urinate this morning but "it was only a bubble." He remained oliguric overnight with 655 all day yesterday, 4 liters removed by dialysis. No urine output since midnight was documented. Vital signs: Temperature 99.5, pulse 79, respiratory rate 18, blood pressure 146/84, 96% on room air. Generally, the patient is awake, alert, oriented to person, place, and time. No wheezing or rales on lung examination. Clear to auscultation. Heart: S1, S2, sinus rhythm. No murmurs, rubs, or gallops. Abdomen is obese, soft, nontender, nondistended. Extremities: No cyanosis or clubbing. LABORATORY DATA: White count 7.6, hemoglobin 11, hematocrit 32, platelet count 224. Sodium 133, potassium 4, chloride 95, bicarbonate 25, BUN 53, creatinine 9.19, glucose of 90. Renal ultrasound: No renal artery stenosis. ASSESSMENT AND PLAN: This is a 29-year-old male, had a history of anxiety and insomnia, alcohol abuse, went into detoxification program 14 months ago and has not been taking any alcohol. He went camping. Had a fall and was taking ibuprofen 800 mg three times a day with some nausea and vomiting at home. Then, presented to the emergency room with generalized malaise and shortness of breath, found to have acute pulmonary edema due to fluid overload and renal failure with a creatinine of 11, severe hyponatremia, sodium of 116. The patient required emergency dialysis due to severe hyponatremia, fluid overload, and high anion gap. IMPRESSION: 1. Acute renal failure with proteinuria and hematuria on urinalysis (UA). Currently, with a urine 24-hour collection to be evaluated by nephrology. Dr. Way had performed emergency dialysis on hospital admission due to severe fluid overload and hyponatremia. The patient was oliguric at that time. He remains with decreased urine output despite dialysis. The patient has no electrolyte abnormalities. Defer to nephrology, Dr. Disla, for dialysis needs and possible renal biopsy to obtain an etiology of the patient's issues. 2. Fluid overload. Most likely secondary to renal failure with echocardiogram performed for evaluation of the heart. The patient had normal ejection fraction 60% to 65% with trace mitral regurgitation and trace pulmonic regurgitation. Otherwise, unremarkable. 3. Acute hypoxic respiratory failure. Had been on Vapotherm, managed by Dr. Harrell, due to fluid overload from renal failure. The patient is currently ambulating well on room air at 96% after 7 liters of fluid had been removed since admission via dialysis. 3 liters on 12/23/2019 and 4 liters removed on 12/24/2019. The patient's weight has decreased from 124 kg to 113.4 kg. The patient did state that he was having outpatient weight gain of about 14 pounds, 10 pounds initially, and then another 4 pounds prior to arrival in the emergency room (ER). 4. History of alcohol abuse. The patient had gone to detoxification and rehabilitation program. The patient has not had any alcohol for the past 14 months. 5. History of prescription drug abuse. Has not had any abuse of oxycodone and Percocet in over a year. 6. Obesity. Body mass index (BMI) of 33, complicating care. DISPOSITION: Defer to nephrology regarding timing of biopsy of the kidney and for dialysis needs. The patient will need to continue hospitalization for the next 1-2 days. MTDD
[2019-12-25 14:00] VITALS: BP 150/90
[2019-12-25] MEDS: QUEtiapine FUMARATE 50 MG TAB PO SCH (21:16)
[2019-12-25 22:00] VITALS: BP 150/90
[2019-12-26] VITALS (8 sets, daily range): BP systolic 140–160; BP diastolic 70–110
[2019-12-26] MEDS: ALPRAZolam 0.5 MG TAB PO PRN ×4 (00:12→20:27)
[2019-12-26 00:50] LABS: CREATININE 24 HOUR, URINE 638.2 MG/24HR (950-2500)
[2019-12-26 06:23] LABS: HEMATOCRIT 31.1 % (42.0-52.0); HEMOGLOBIN 10.7 g/dl (13.5-17.5); MEAN CORPUSCULAR HEMOGLOBIN 29.4 pg (27.0-33.0); MEAN CORPUSCULAR HGB CONC 34.4 g/dl (32.0-36.5); MEAN CORPUSCULAR VOLUME 85.4 fl (80.0-96.0); PLATELET COUNT, AUTOMATED 228 10^3/uL (150-450); RED BLOOD COUNT 3.64 10^6/uL (4.30-6.10); WHITE BLOOD COUNT 8.6 10^3/uL (4.0-10.0)
[2019-12-26 06:48] LABS: CALCIUM LEVEL 8.4 MG/DL (8.5-10.1); CREATININE FOR GFR 10.6 MG/DL (0.70-1.30); GLOMERULAR FILTRATION RATE 6.1 (>60); POTASSIUM SERUM 4.5 MEQ/L (3.5-5.1)
--- NOTE | 2019-12-26 08:18 | IPN ---
DATE: 12/25/2019 The patient was seen and examined the bedside this morning. He is afebrile, hemodynamically stable. His shortness of breath is significantly better. He is not requiring any oxygen. The patient remains oliguric he has collecting 24-hour urine for protein and creatinine. There is no significant improvement in the renal function. Hyponatremia is improving. OBJECTIVE: Vital signs: Temperature is 98.4 degrees Fahrenheit, blood pressure is 150/90, pulse is 90, respiratory of 90, saturating 96% on room air. Intake and output: Urine output recorded is 425 mL so far. Weight on the bed scale is 113.4 kg. PHYSICAL EXAMINATION: GENERAL: The patient is awake, alert, oriented times three, laying in bed in no apparent distress. HEAD AND NECK EXAM: Extraocular muscles intact. Pupils equally round and reactive to light. Neck is supple. He has a right internal jugular ( IJ) non-tunneled hemodialysis catheter. CARDIOVASCULAR: S1, S2, regular rate. No edema of the bilateral lower extremities. RESPIRATORY: Chest is clear to auscultation bilaterally. Bilateral equal air entry. No rales or rhonchi. ABDOMEN: Soft, obese, positive bowel sounds. Nontender. No organomegaly. MUSCULOSKELETAL: No clubbing or cyanosis. Pulses are 2+. CENTRAL NERVOUS SYSTEM (ASSISTANT STORE DIRECTOR): No focal deficit. Power is 5/5 in all extremities. LAB REVIEW: CBC showed WBC 7.6, hemoglobin 11.4, platelets of 124. BMP showed sodium 133, potassium 4, chloride 95, bicarb 25, BUN 53, creatinine is 9.1, iron level is 22, TIBC 268, transferrin saturation 8.2%. Autoimmune serology is pending. IMAGING STUDIES: A chest x-ray was done this morning which showed stable exam. Mildly increased interstitial markings consistent with interstitial edema. CURRENT INPATIENT MEDICATIONS: The patient's medications were all reviewed by myself. He continues to be on amlodipine hydralazine. I have started him on IV Venofer to be given during dialysis. No other change in the medications today as compared with yesterday. ASSESSMENT/PLAN: 1. Acute renal failure: The patient is still oliguric. There are no signs of renal improvement. Autoimmune serologies pending. He still dialysis dependent. He will be dialyzed tomorrow morning and after dialysis, a temporary dialysis catheter will be removed. The patient also needs a renal biopsy, which will be done under CT guidance and interventional radiology. 2. Need for dialysis access: The patient has a temporary non-tunneled hemodialysis catheter. This catheter will be removed after dialysis tomorrow morning. He will get a tunneled dialysis catheter placed on Thursday. 3. Acute decompensated congestive heart failure with preserved ejection fraction: The patient got two [id number] hemodialysis sessions over the weekend. Next hemodialysis and ultrafiltration will be done tomorrow morning. 4. Hyponatremia: It is hypovolemic hyponatremia. Sodium has nicely improved to 133. Further fluid optimization would help improve the patient's sodium level. 5. Iron-deficiency anemia. Continue Venofer administration with dialysis. 6. Hypertension: It is secondary to fluid overload. He continues to be on amlodipine and hydralazine. Optimization of fluid status would help improve his blood pressure.
[2019-12-26] MEDS: NICOTINE 14 MG/24 HR TRANSDERMAL TD SCH (08:23)
[2019-12-26] MEDS: **hydrALAZINE** 10 MG TAB PO SCH ×4 (09:00→20:31)
[2019-12-26 10:29] LABS: PTH INTACT 165.9 PG/ML (18.5-88.0)
[2019-12-26] MEDS: ACETAMINOPHEN TAB 650MG DOSE (2X325MG) PO PRN (11:15)
[2019-12-26 11:53] LABS: TOTAL PROTEIN 24 HOUR URINE 406.5 MG/24HR (50-150); URINE TOTAL PROTEIN 70.7 MG/DL (0-12)
[2019-12-26] MEDS: amLODIPine 5 MG TAB PO SCH ×2 (13:39→20:31)
[2019-12-26] MEDS ORDERED: diphenhydrAMINE 50MG/ML VIAL (J1200) As Ordered ONE (14:09)
[2019-12-26] MEDS ORDERED: fentaNYL 100 MCG/2 ML INJECTION (J3010) As Ordered ONE (14:10)
[2019-12-26] MEDS ORDERED: MIDAZOLAM INJ 2MG/2ML VIAL (J2250 PER 1MG) As Ordered ONE (14:10)
[2019-12-26] MEDS ORDERED: LIDOCAINE 1% MDV 20ML VIAL As Ordered ONE (14:10)
--- NOTE | 2019-12-26 15:33 | IRMSE ---
[facility] IR Moderate Sedation Eval. Date and Time Date: Dec 26, 2019 Time: 15:33 ASA Classification ASA Classification: III-Severe systemic dis. Mallampati Score: II NPO: Yes Obstructive Sleep Apnea: No Interval Plan: moderate sedation DELMAR GERMAN MD Dec 26, 2019 15:33
--- NOTE | 2019-12-26 15:34 | POST-OPPD ---
Postoperative Procedure Note Date Of Procedure: Dec 26, 2019 Time Of Procedure: 15:33 PREOPERATIVE DIAGNOSIS: RF POSTOPERATIVE DIAGNOSIS: same FINDINGS: unremarkable left kidney PROCEDURE: left kidney Bx SURGEON: shell ANESTHESIA: mod sed SPECIMENS: core x 3 ESTIMATED BLOOD LOSS: < 5 ml COMPLICATIONS: none POSTOPERATIVE CONDITION: stable DELMAR GERMAN MD Dec 26, 2019 15:34
[2019-12-26 16:08] LABS: ANCA-ATYPICAL <1:20 titer (Neg:<1:20); ANTINUCLEAR ANTIBODIES DIRECT Negative (Negative); CYTOPLASMIC NEUTROP AB ANCA-C <1:20 titer (Neg:<1:20); PERINUCLEAR AB ANCA-P <1:20 titer (Neg:<1:20)
--- NOTE | 2019-12-26 17:31 | IPN ---
DATE OF SERVICE: 12/26/2019 SUBJECTIVE: Patient was seen and examined at the bedside today morning. He is afebrile, hemodynamically stable. He is getting the hemodialysis done. He is tolerating the hemodialysis procedure well. Patient has remained oliguric at this time. OBJECTIVE: VITAL SIGNS: Temperature is 98 degrees Fahrenheit, blood pressure 158/84, pulse is 76, respiratory rate of 17, saturating 92% on room air. INTAKE/OUTPUT: Urine output recorded yesterday is 575 mL. So far today he has 200 mL of urine output. Weight in the bed scale is stable at 113.1. PHYSICAL EXAMINATION: GENERAL: Patient is awake, alert, oriented times three, laying in bed getting hemodialysis done. HEAD/NECK EXAM: Extraocular muscles intact. Pupils equally round and reactive to light. Mucous membranes are moist. Neck is supple. She has a right internal jugular (IJ) nontunneled hemodialysis catheter being used for dialysis. CARDIOVASCULAR: S1, S2, regular rate. No edema of the bilateral lower extremities. RESPIRATORY; Chest is clear to auscultation bilaterally. Bilateral equal air entry. No rales or rhonchi. ABDOMEN: Soft. Positive bowel sounds. Nontender. No organomegaly. MUSCULOSKELETAL: No clubbing or cyanosis. Pulses are 2+. CENTRAL NERVOUS SYSTEM (HORSE BREAKER): No focal deficit. Power is 5/5 in all extremities. LAB REVIEW: Complete blood count (CBC) showed WBC 8.6, hemoglobin 10.7, platelets are 228. 24-hour urine protein is 406 and 24-hour urine creatinine is 638. Basic metabolic panel (BMP) showed sodium 135, potassium 4.5, chloride 96, bicarbonate 24, BUN 69, creatinine is 10.6, calcium 8.4. CURRENT INPATIENT MEDICATIONS: The patient's medications were all reviewed by me. His Seroquel dose has been changed to 100 mg at bedtime for insomnia. ASSESSMENT/PLAN: 1. Acute renal failure, unknown etiology. Patient is oliguric. less than 1 gram of protein in 24-hour urine. He has mild hematuria. Autoimmune serologies pending. Patient is going to have left-sided CT-guided renal biopsy done today after dialysis. 2. Need for dialysis access. Patient will get tunneled dialysis catheter by vascular surgery tomorrow morning. 3. Acute decompensated congestive heart failure with preserved ejection fraction. Volume status is significantly better. Patient may get three more liter of fluid removed during dialysis today. 4. Hypervolemic hyponatremia. Patient's sodium level is improving with dialysis and fluid removal. He is being dialyzed with a sodium of 140. 5. Iron-deficiency anemia. Continue Venofer injections with dialysis. 6. Hypertension. Blood pressure is getting better with optimization of fluid status. Continue amlodipine and hydralazine. DISPOSITION: Patient will need placement at an outpatient dialysis center for acute renal failure. Whenever he gets the chair as outpatient he can be discharged.
--- NOTE | 2019-12-26 17:59 | CR.PDOC ---
General Date of Consultation: Dec 26, 2019 Consultation REASON FOR CONSULTATION/CHIEF COMPLAINT: Acute renal failure requiring access for dialysis HISTORY OF PRESENT ILLNESS: This is a very pleasant 29-year-old patient with new diagnosis of acute renal failure who has been on dialysis through a temporary jugular catheter, and now requires a PermCath for an outpatient dialysis access. Risks benefits and alternatives to PermCath placement were explained and the patient is agreeable to proceed. Informed consent was obtained. ALLERGIES: Please see below. HOME MEDICATIONS: Please see below. PAST MEDICAL HISTORY: Acute renal failure with volume overload and CHF/SOB, anemia, alcoholism, tobacco abuse, anxiety PAST SURGICAL HISTORY: Tonsillectomy, temper dialysis catheter placement FAMILY HISTORY: Heart disease SOCIAL HISTORY: Positive for tobacco and alcohol use. Denies illicit drug use. REVIEW OF SYSTEMS: CONSTITUTIONAL: Positive malaise denies fevers HEENT: Denies vision or hearing changes CARDIOVASCULAR: Denies chest pain RESPIRATORY: Positive shortness of breath and work of breathing GENITOURINARY: Denies dysuria MUSCULOSKELETAL: Denies claudication GASTROINTESTINAL: Nice nausea vomiting diarrhea SKIN: Denies rashes NEUROLOGICAL: Denies seizures or headaches PSYCHIATRIC: Positive anxiety occasional depression ENDOCRINE: Denies diabetes or thyroid disease HEMATOLOGIC/LYMPHATIC: Positive anemia ALLERGIC/IMMUNOLOGIC: Denies PHYSICAL EXAMINATION: VITAL SIGNS: Please see below. GENERAL APPEARANCE: Medically stable. HEENT: Normocephalic TMI. RESPIRATORY: Slightly coarse breath sounds and diminished bibasilar CARDIOVASCULAR: Regular rate and rhythm. ABDOMEN: Abdomen soft nontender. EXTREMITIES: Distal pulses intact NEUROLOGICAL: Moves all extremities equally alert and oriented PSYCHIATRIC: Pleasant and cooperative LABORATORY DATA: Please see below. ASSESSMENT/PLAN: Very pleasant 29-year-old patient with acute renal failure requiring more permanent access for dialysis 1. Plan for PermCath placement in the morning 2. Nothing by mouth after midnight except for meds We appreciate the opportunity to participate in the care of this patient Vital Signs/I&O Vital Signs Date Time Temp Pulse Resp B/P (MAP) Pulse Ox O2 Delivery O2 Flow Rate FiO2 12/26/19 17:04 148/100 12/26/19 16:11 81 18 95 Room Air 12/26/19 15:10 2 12/26/19 14:31 98.3 12/24/19 04:00 40 I&O- Last 24 Hours up to 6 AM 12/26/19 06:00 Intake Total 1300 ml Output Total 575 ml Balance 725 ml Laboratory Data Labs 24H Laboratory Tests 2 12/26/19 05:59: Nucleated Red Blood Cells % (auto) 0.0, Anion Gap 15, Glomerular Filtration Rate 6.1L, Calcium Level 8.4L CBC/BMP Laboratory Tests 12/26/19 05:59 Allergies Coded Allergies: No Known Allergies (Unverified , 12/22/19) Home Medications Scheduled Quetiapine Fumarate (Quetiapine Fumarate) 100 Mg Tablet, 100 MG PO QHS, (Reported) Scheduled PRN Alprazolam (Alprazolam) 0.5 Mg Tablet, 0.5 MG PO QID PRN for ANXIETY/AGITATION, (Reported) PETER PEACOCK MD Dec 26, 2019 17:59
[2019-12-26] MEDS: QUEtiapine FUMARATE 100 MG TAB PO SCH (20:31)
--- NOTE | 2019-12-26 20:45 | IPN ---
DATE: 12/26/2019 Patient complains of not being able to sleep last night, only slept about 4 hours, requested for Seroquel to be increased back from 50 mg to 100 mg. He otherwise denies any chest pain, pressure, tightness. He has not urinated as much. The patient's urine output was 575 over the past 24 hours. Current weight is 113.1 kg. He had 7 liters removed by dialysis since admission and 3 liters again today. No shortness of breath, chest pain, pressure, tightness, lightheadedness or dizziness. Patient has no pain. Temperature 98.3, pulse 83, respiratory rate 18, blood pressure 152/102, 96% on room air. Generally, patient is awake, alert, oriented to person, place and time, answering questions appropriately. Right internal jugular (IJ) hemodialysis catheter in place. No jugular venous distention (JVD) or thyromegaly. No cervical lymphadenopathy. Moist mucous membranes. Heart: S1, S2, sinus rhythm. No murmurs, rubs, or gallops. Lungs are clear to auscultation. No wheezing, rales, or rhonchi. Abdomen is soft, nontender, nondistended. Positive bowel sounds times four quadrants. Extremities: No cyanosis or clubbing, 2+ pulses. LABORATORY DATA: White count 8.6, hemoglobin 10, hematocrit 31, platelet count 228. Sodium 135, potassium 4.5, chloride 96, bicarbonate 24, BUN 69, creatinine 10.6, glucose of 90. Chest x-ray, 12/25/2019: Interstitial edema. ASSESSMENT AND PLAN: This is a 29-year-old male, had a history of anxiety, insomnia, alcohol abuse, went into detox program 14 years ago, has not been taking anymore alcohol. Had a previous history of abuse of prescription medications, went camping, had a fall, complained of pain and was taking ibuprofen 800 mg three times a day, then had nausea and vomiting at home, presented to the ER with shortness of breath, found to have acute fluid overload with pulmonary edema and renal failure, creatinine of 11, hyponatremia, sodium of 116, required emergency dialysis in the intensive care unit (ICU) and Vapotherm for acute hypoxic respiratory failure. IMPRESSION: 1. Acute hypoxic respiratory failure, resolved, secondary to fluid overload. 2. Fluid overload due to acute oliguric renal failure. 3. Acute oliguric renal failure requiring hemodialysis. 4. Severe hyponatremia secondary to renal failure. 5. Proteinuria. 6. Hematuria. 7. History of alcohol abuse. 8. History of prescription drug abuse. 9. Obesity. 10. Insomnia. 11. History of anxiety. 12. Acute rhabdomyolysis. 13. Acute decompensated congestive heart failure with preserved ejection fraction. 14. Iron deficiency anemia. On IV Venofer. PLAN: The patient is to have a renal biopsy later today, and a tunneled dialysis catheter tomorrow. The patient is to be kept nothing by mouth after midnight for dialysis catheter placement in the morning. Defer to nephrology for dialysis needs as an outpatient and discharge planning. At this time, the patient appears to be euvolemic but dialysis dependent and remains oliguric. He is requesting his Seroquel to be increased back to 100 mg nightly, which we have done. He does have abnormal liver function tests, which appears to have improved. The patient is currently off Vapotherm and saturating 97% to 100% on room air.
[2019-12-27] MEDS: ALPRAZolam 0.5 MG TAB PO PRN ×4 (03:43→22:19)
[2019-12-27 06:00] VITALS: BP 140/98
[2019-12-27 06:46] LABS: HEMATOCRIT 35.8 % (42.0-52.0); HEMOGLOBIN 12.3 g/dl (13.5-17.5); MEAN CORPUSCULAR HEMOGLOBIN 29.4 pg (27.0-33.0); MEAN CORPUSCULAR HGB CONC 34.4 g/dl (32.0-36.5); MEAN CORPUSCULAR VOLUME 85.4 fl (80.0-96.0); PLATELET COUNT, AUTOMATED 282 10^3/uL (150-450); RED BLOOD COUNT 4.19 10^6/uL (4.30-6.10); WHITE BLOOD COUNT 10.2 10^3/uL (4.0-10.0)
[2019-12-27] MEDS ORDERED: fentaNYL 100 MCG/2 ML INJECTION (J3010) As Ordered ONE (07:12)
[2019-12-27] MEDS ORDERED: MIDAZOLAM INJ 2MG/2ML VIAL (J2250 PER 1MG) As Ordered ONE (07:13)
[2019-12-27] MEDS ORDERED: LIDOCAINE W/EPINEPHRINE 1% 20ML VIAL As Ordered ONE (07:13)
[2019-12-27 07:14] LABS: CALCIUM LEVEL 9.3 MG/DL (8.5-10.1); CREATININE FOR GFR 8.06 MG/DL (0.70-1.30); GLOMERULAR FILTRATION RATE 8.3 (>60); POTASSIUM SERUM 4.2 MEQ/L (3.5-5.1)
[2019-12-27] MEDS ORDERED: ceFAZolin 1GM VIAL (J0690 PER 500MG) As Ordered ONE (07:26)
[2019-12-27 08:00] VITALS: BP 156/98
--- NOTE | 2019-12-27 08:47 | ROOPDOC ---
[facility] Report Of Operation Report of Operation DATE OF PROCEDURE: 12/27/19 PREPROCEDURE DIAGNOSES: Acute renal failure requiring access for dialysis POSTPROCEDURE DIAGNOSES: Same PROCEDURE: 1. Ultrasound-guided access left internal jugular vein 2. Placement of a 27 cm tunneled PermCath left IJ SURGEON: Peter Wills MD ANESTHESIA: Local anesthesia 16 mL lidocaine with epinephrine. Moderate intravenous conscious sedation was supervised by Dr. Wills. The patient was independently monitored by registered nurse assigned to the Department of radiology using automated blood pressure, EKG, and pulse oximetry. The detailed sedation record is permanently stored in the hospital information system. The following is a brief sedation record: Start time 08:06, stop time 08:29, Versed 1.5 mg IV, fentanyl 75 g IV, Ancef 2 g IV. INDICATION FOR PROCEDURE: This is a very pleasant 29-year-old gentleman with acute renal failure who requires access for dialysis. He has a little bit of a rash over his right neck where his temporary dialysis catheter had been placed previously, and therefore we discussed the risks benefits and alternatives to a PermCath placement on the left. The patient is agreeable to proceed. Informed consent was obtained. INTERPRETATION: 1. The PermCath is in good position from the left IJ with the tips freely mobile and the right atrial SVC junction. There is no pneumothorax. There are no kinks in the catheter. REPORT OPERATION: The patient was brought to the angiographic suite in stable condition. His left neck and chest were prepped and draped in a sterile fashion. A timeout was performed. Sedation and antibiotics were administered without complication. Local anesthesia was administered to the skin and subcutaneous tissue over the left jugular vein on the left neck, over the neck towards the clavicle, over the clavicle towards the left lateral chest. A microneedle was used to access the jugular vein under ultrasound guidance. A wire was passed through this access under fluoroscopic guidance the needle was removed. A micro- sheath was placed. We then advanced a J-wire through this access into the central system under fluoroscopic guidance. A small incision was made at the jugular access site with the skin knife. A small incision was made on the left lateral chest just distal to the clavicle with the skin knife. We then tunneled a 27 cm PermCath from the left lateral chest to the jugular access site until the cuff was within the subcutaneous tissue. Next, 2 serial dilations were performed over the wire using a Seldinger technique. A peel-away sheath was placed over the wire into the central system under fluoroscopic guidance. The inner cannula and wire were removed and the tips of the catheter were advanced through the peel-away sheath into the central system. Peel-away sheath was removed. Both ports of the catheter viviana back and flushed easily. They were heparin locked. The jugular access site was closed with a deep and 2 superficial dermal interrupted Monocryl sutures. The skin was dressed with Dermabond. The exit site on the left chest was closed with 2 Prolene sutures. The catheter was secured to the chest wall with 2 additional Prolene sutures. Sterile dressings were applied. The patient was taken to recovery in stable condition. There were no comp locations and he tolerated the procedure and the sedation well. ESTIMATED BLOOD LOSS: Approximately 5 mL. COMPLICATIONS: None. PLAN: It is okay to use the PermCath for dialysis. Etiology for acute renal failure is not yet known, but if renal failure becomes chronic, we would like to see the patient back for vein mapping and discussion about AV access. For today, we recommend the patient keep his head of bed greater than 45, try to keep his head elevated to decreased venous pressure and diminished bleeding, avoid bending over at the waist. Okay to resume preprocedure diet and medications. We appreciate the opportunity to participate in the care of this patient. PETER WILLS MD Dec 27, 2019 08:47
[2019-12-27] MEDS: NICOTINE 14 MG/24 HR TRANSDERMAL TD SCH (09:18)
[2019-12-27] MEDS: amLODIPine 5 MG TAB PO SCH ×2 (09:24→20:56)
[2019-12-27] MEDS: **hydrALAZINE** 10 MG TAB PO SCH ×4 (09:25→20:56)
[2019-12-27] MEDS: ACETAMINOPHEN TAB 650MG DOSE (2X325MG) PO PRN (09:28)
[2019-12-27 14:00] VITALS: BP 150/89
--- NOTE | 2019-12-27 16:51 | IPN ---
DATE: 12/27/2019 SUBJECTIVE: The patient was seen and examined at the bedside today morning in interventional radiology. The patient is getting his tunneled hemodialysis catheter placed today. The patient got a CT-guided left renal biopsy done yesterday after dialysis. He tolerated the procedure well. He was also dialyzed yesterday and 3 kg of fluid was removed. Right internal jugular (IJ) nontunneled hemodialysis catheter was removed after dialysis yesterday. OBJECTIVE: Vital signs: Temperature is 98 degrees Fahrenheit, blood pressure 156/98, pulse is 88, respiratory rate of 16, saturating 95% on room air. Intake and output. There is no urine output recorded today. Urine output yesterday was 400 mL. Ultrafiltration during hemodialysis was 3 liters. Weight in the bed scale is stable at 103 kg. PHYSICAL EXAMINATION: General: The patient is awake, alert, oriented times three. Head and neck exam: Extraocular muscles intact. Pupils equally round and reactive to light. Mucous membranes are moist. Neck is supple. Right IJ catheter has been removed. Cardiovascular: S1, S2, regular rate. No edema of the bilateral lower extremities. Respiratory: Chest is clear to auscultation bilaterally. Bilateral equal air entry. No rales or rhonchi. Abdomen: Soft, obese, positive bowel sounds. Nontender. No organomegaly. Musculoskeletal: No clubbing or cyanosis. Pulses are 2+. Central nervous system (BARREL CUTTER): No focal deficit. Power is 5/5 in all extremities. LAB REVIEW: CBC showed a WBC of 10.2, hemoglobin 12.3, platelets are 282. BMP showed sodium 136, potassium 4.2, chloride 99, bicarbonate 26, BUN 47, creatinine is 8, calcium 9.3. CURRENT INPATIENT MEDICATIONS: The patient's medications were all reviewed by myself. There is no significant change in the medications today as compared with yesterday except that his Seroquel dose has been increased to 100 mg nightly because of insomnia. ASSESSMENT/PLAN: 1. Acute renal failure. Patient is oliguric renal failure. Subnephrotic range proteinuria and mild hematuria on urinalysis. Autoimmune serology is all negative so far. The patient got CT-guided left-sided renal biopsy done yesterday. Prelim pathology result is pending. He is still dialysis dependent. He is going to have the tunneled dialysis catheter placed. He was dialyzed yesterday. Next dialysis will be tomorrow. 2. Congestive heart failure with preserved ejection fraction. Volume status is being optimized with dialysis. Three liters of fluid was removed yesterday. Three more kg of fluid will be removed tomorrow morning. 3. Iron-deficiency anemia. Continue IV Venofer with dialysis. Hemoglobin level is stable and has improved to 12.3 now. No need of Aranesp administration. 4. Hypervolemic hyponatremia. The patient's sodium has improved to normal range at 136 with [id number] dialysis and fluid removal. 5. Hypertension. Continue current dose of amlodipine and hydralazine. Blood pressure is controlled at this time.
--- NOTE | 2019-12-27 19:01 | IPNPDOC ---
Date Seen The patient was seen on 12/27/19. Progress Note SUBJECTIVE: Tunneled dialysis catheter placed, causing some discomfort but not pain. BP slightly elevated at 150 systolic but -2980 /24 hrs. Pathology still pending from renal biopsy. Slept better last evening with increased dose of seroquel. Denies chest pain, shortness of breath. OBJECTIVE: VITAL SIGNS: Please see below PHYSICAL EXAMINATION: CONSTITUTIONAL: No acute distress, resting comfortably, AAO x 3 EYES: PERRLA, EOM intact HENT, MOUTH: Normocephalic, atraumatic, moist mucous membranes NECK: SUPPLE, no JVD, no lymphadenopathy, no carotid bruit CV: Regular rate and rhythm, S1S2 normal, no murmurs/rubs/gallops CHEST: tunneled catheter in left upper chest RESPIRATORY: Clear to auscultation bilaterally, no rales/rhonchi/wheezes GI: BS positive in 4 quadrants, soft, nontender, nondistended, no rebound or guarding, no organomegaly : Deferred MUSCULOSKELETAL: Normal ROM. No cyanosis, clubbing, swelling, joint deformity, +1-2extremity edema INTEGUMENTARY: Intact, no rashes, no lesions, no erythema NEUROLOGIC: Cranial Nerves II-XII are intact, no focal deficits PSYCHIATRIC: Mood and affect are normal CURRENT MEDICATIONS: Please see below LABORATORY DATA: Please see below IMAGING: No new imaging. ASSESSMENT: 29 y/o M treated for acute renal failure , congestive heart failure with preserved EF, iron deficiency anemia. PLAN: 1. Acute renal failure with oliguric renal failure. Good urine o/p. Autoimmune serology is neg thus far. Pending renal US pathology results. Patient will remain dialysis depended, tunnelled cath placed this AM. To go for HD again in the AM, f/u nephrology recommendations. 2. Congestive heart failure with preserved ejection fraction. S/p 3 Liters removed yesterday with HD, to go for HD again 12/28/19 where additional 3 L to be removed. C/w CCB, not adding lasix. 3. Iron-deficiency anemia. Continue IV Venofer with dialysis. H/H currently stable, f/u daily CBC 4. HTN. C/w CCB, hydralazine. 5. Hepatitis surface antibody +. Most patients, anti-HBs persists for life, thereby conferring long-term immunity. This may mean patient may have been vaccinated or he may have recovered from an acute HBV infection and are no longer contagious. Unknown patient's immunization past, will f/u with him in AM. 6. DVT px. TEDs, heparin SC. DISPOSITION: Currently inpatient. Will discuss with nephrology to see when patient can possibly go home to resume o/p HD. To get another session of HD in the AM. VS, I&O, 24H, Fishbone Vital Signs/I&O Vital Signs Date Time Temp Pulse Resp B/P (MAP) Pulse Ox O2 Delivery O2 Flow Rate FiO2 12/27/19 17:19 156/104 12/27/19 14:00 97.4 98 18 99 Room Air 12/27/19 08:30 2 12/24/19 04:00 40 I&O- Last 24 Hours up to 6 AM 12/27/19 06:00 Intake Total 420 ml Output Total 3400 ml Balance -2980 ml Laboratory Data 24H LABS Laboratory Tests 2 12/27/19 06:30: Nucleated Red Blood Cells % (auto) 0.0, Anion Gap 11, Glomerular Filtration Rate 8.3L, Calcium Level 9.3 CBC/BMP Laboratory Tests 12/27/19 06:30 Microbiology Microbiology 12/27/19 Respiratory Virus Panel (PCR) ([facility]ANEL) - Final, Complete Current Medications Current Medications Medications (Trade) Dose Ordered Sig/Adam Route PRN Reason Start Time Stop Time Status Last Admin Dose Admin Acetaminophen (Tylenol Tab) 650 mg Q4HP PRN PO PAIN OR FEVER 12/26/19 11:00 12/27/19 09:28 Alprazolam (Xanax) 0.5 mg QID PRN PO ANXIETY/AGITATION 12/23/19 06:45 12/27/19 16:09 Amlodipine Besylate (Norvasc) 5 mg BID PO 12/24/19 09:00 12/27/19 09:24 Furosemide (LASIX injection) 40 mg Q6H IV 12/23/19 03:00 12/23/19 13:33 DC 12/23/19 08:07 Home Med (Med Rec Complete!) ASDIRECTED XX 12/23/19 02:15 12/23/19 02:13 DC Hydralazine HCl (Apresoline) 10 mg Q6H PRN IV SEE LABEL COMMENTS 12/23/19 04:45 12/24/19 08:38 DC 12/23/19 08:07 Hydralazine HCl (Apresoline) 10 mg QID PO 12/24/19 09:00 12/27/19 17:19 Iron (Venofer) 100 mg HD IV 12/24/19 19:45 Nicotine (Nicoderm Cq 14mg) 1 patch DAILY TD 12/23/19 19:00 12/27/19 09:18 Ondansetron HCl (ZOFRAN INJection) 8 mg Q4HP PRN IV NAUSEA OR VOMITING 12/23/19 10:00 12/23/19 17:18 Quetiapine Fumarate (SEROquel) 50 mg QHS PO 12/24/19 21:00 12/26/19 12:06 DC 12/25/19 21:16 Quetiapine Fumarate (SEROquel) 100 mg QHS PO 12/23/19 21:00 12/23/19 13:28 DC Quetiapine Fumarate (SEROquel) 100 mg QHS PO 12/24/19 21:00 12/24/19 08:51 DC 12/23/19 22:17 Quetiapine Fumarate (SEROquel) 100 mg QHS PO 12/26/19 21:00 12/26/19 20:31 Allergies Coded Allergies: No Known Allergies (Unverified , 12/22/19) Abril Collado MD Dec 27, 2019 19:01
[2019-12-27] MEDS: QUEtiapine FUMARATE 100 MG TAB PO SCH (20:56)
[2019-12-27] MEDS: HEPARIN SOD (PORCINE) 5000UNITS/ML VIAL (J1644 PER 1000UNITS) SQ SCH (20:57)
[2019-12-27 22:00] VITALS: BP 150/105
[2019-12-28 00:50] VITALS: BP 150/100
[2019-12-28] MEDS: ACETAMINOPHEN TAB 650MG DOSE (2X325MG) PO PRN ×3 (01:27→17:22)
[2019-12-28 02:46] VITALS: BP 146/98
[2019-12-28 06:00] VITALS: BP_SYST 129; BP_SYST 148; BP_DIAS 81; BP_DIAS 98
[2019-12-28] MEDS: **hydrALAZINE** 10 MG TAB PO SCH ×4 (06:18→20:37)
[2019-12-28] MEDS: amLODIPine 5 MG TAB PO SCH ×2 (06:19→20:37)
[2019-12-28] MEDS: ALPRAZolam 0.5 MG TAB PO PRN ×4 (06:19→23:49)
[2019-12-28] MEDS: HEPARIN SOD (PORCINE) 5000UNITS/ML VIAL (J1644 PER 1000UNITS) SQ SCH ×2 (06:20→20:37)
[2019-12-28] MEDS: NICOTINE 14 MG/24 HR TRANSDERMAL TD SCH (06:20)
[2019-12-28 06:32] LABS: HEMATOCRIT 32.8 % (42.0-52.0); HEMOGLOBIN 11.4 g/dl (13.5-17.5); MEAN CORPUSCULAR HEMOGLOBIN 29.8 pg (27.0-33.0); MEAN CORPUSCULAR HGB CONC 34.8 g/dl (32.0-36.5); MEAN CORPUSCULAR VOLUME 85.9 fl (80.0-96.0); PLATELET COUNT, AUTOMATED 262 10^3/uL (150-450); RED BLOOD COUNT 3.82 10^6/uL (4.30-6.10); WHITE BLOOD COUNT 10.8 10^3/uL (4.0-10.0)
[2019-12-28 06:49] LABS: CALCIUM LEVEL 8.9 MG/DL (8.5-10.1); CREATININE FOR GFR 9.25 MG/DL (0.70-1.30); GLOMERULAR FILTRATION RATE 7.1 (>60); POTASSIUM SERUM 4.2 MEQ/L (3.5-5.1)
[2019-12-28 11:08] LABS: ANTI DS-DNA AB Negative (Negative)
--- NOTE | 2019-12-28 12:22 | REP ---
IR CT guided kidney biopsy. IR moderate sedation. Clinical information: Renal failure. Physician: Dr. Laguna. Procedure: The patient was advised of the benefits, risks and alternatives of the procedure and informed consent was obtained. The time-out was performed with verification of the patient's name, MRN, site of procedure and type of procedure to be performed. The patient was positioned in the prone position on the table. The site was prepped and draped in the usual sterile fashion. Moderate sedation was performed by the physician including the presence of an independent trained observer who assisted in monitoring the patient's level of consciousness and physiologic status. Following the administration of Fentanyl and Versed, the physician spent 45 minutes of continuous face to face time with the patient. Preliminary CT of the kidneys demonstrates unremarkable left kidney. The anticipated puncture site was anesthetized with lidocaine. A 17 G coaxial needle was inserted into the lower pole of the left kidney, under intermittent CT guidance. An 18 Gauge biopsy device was inserted through the coaxial needle and used to obtain core biopsies of the left Kidney, under intermittent CT guidance. The specimen was labeled with the patient's name and medical record number and sent for further analysis. The coaxial needle and biopsy device were removed, pressure held and hemostasis achieved. A follow-up CT through the area demonstrates a small hematoma. A sterile dressing was applied to the site. The patient tolerated the procedure well and was returned to the PRU in stable condition. EBL: < 5 ml. Complications: None. Conclusion: 1. CT demonstrates unremarkable left kidney. 2. Successful CT -guided core kidney biopsy. Patient to follow up with referring provider for biopsy results. Thank you for this referral. Electronically Signed by Jessica Laguna MD 12/28/2019 12:20 P
[2019-12-28] MEDS ORDERED: ceFAZolin SOD 2 GM in IV 1 EA IV ONE (13:00)
[2019-12-28 13:43] LABS: CLOSTRIDIUM DIFFICILE PCR NEGATIVE (NEGATIVE)
[2019-12-28 14:00] VITALS: BP 148/98
--- NOTE | 2019-12-28 14:03 | IPNPDOC ---
Date Seen The patient was seen on 12/28/19. Progress Note SUBJECTIVE: HD today to remove 3 L. 4 loose stools since AM, C. diff PCR ordered. WBC slightly increased. Nephrology following closely. Denies chest pain, shortness of breath. OBJECTIVE: VITAL SIGNS: Please see below PHYSICAL EXAMINATION: CONSTITUTIONAL: No acute distress, resting comfortably, AAO x 3 EYES: PERRLA, EOM intact HENT, MOUTH: Normocephalic, atraumatic, moist mucous membranes NECK: SUPPLE, no JVD, no lymphadenopathy, no carotid bruit CV: Regular rate and rhythm, S1S2 normal, no murmurs/rubs/gallops CHEST: tunneled catheter in left upper chest/nape of neck RESPIRATORY: Clear to auscultation bilaterally, no rales/rhonchi/wheezes GI: BS positive in 4 quadrants, soft, nontender, nondistended, no rebound or guarding, no organomegaly : Deferred MUSCULOSKELETAL: Normal ROM. No cyanosis, clubbing, swelling, joint deformity, +1 extremity edema INTEGUMENTARY: Intact, no rashes, no lesions, no erythema NEUROLOGIC: Cranial Nerves II-XII are intact, no focal deficits PSYCHIATRIC: Mood and affect are normal CURRENT MEDICATIONS: Please see below LABORATORY DATA: Please see below IMAGING: No new imaging. ASSESSMENT: 29 y/o M treated for acute renal failure, congestive heart failure with preserved EF, iron deficiency anemia. PLAN: 1. Acute renal failure with oliguric renal failure. S/p HD again today, continues to have good urine o/p. Autoimmune serology is neg thus far. Pending renal US pathology results. Patient will remain dialysis depended, tunnelled cath in place. Nephrology following closely. 2. Diarrhea, r/o C. diff. Mild leukocytosis. F/u c. diff PCR, special contact precautions. 3. Congestive heart failure with preserved ejection fraction. C/w CCB, not adding lasix. 4. Iron-deficiency anemia. Continue IV Venofer with dialysis. H/H currently stable, f/u daily CBC 5. HTN. C/w CCB, hydralazine. 6. Hepatitis surface antibody +. Most patients, anti-HBs persists for life, thereby conferring long-term immunity. This may mean patient may have been vaccinated or he may have recovered from an acute HBV infection and are no longer contagious. Unknown patient's immunization past, but does not need vaccination as he is already immune. 7. DVT px. TEDs, heparin SC. DISPOSITION: Currently inpatient. Awaiting prelim renal biopsy report. If no diarrhea and report arrives, likely discharge home 12/29/19. Will need to have HD chair arranged. VS, I&O, 24H, Fishbone Vital Signs/I&O Vital Signs Date Time Temp Pulse Resp B/P (MAP) Pulse Ox O2 Delivery O2 Flow Rate FiO2 12/28/19 13:14 148/94 12/28/19 06:19 73 12/28/19 06:00 99.1 24 93 Room Air 12/27/19 08:30 2 12/24/19 04:00 40 I&O- Last 24 Hours up to 6 AM 12/28/19 06:00 Intake Total 1700 ml Output Total 651 ml Balance 1049 ml Laboratory Data 24H LABS Laboratory Tests 2 12/28/19 05:55: Nucleated Red Blood Cells % (auto) 0.0, Anion Gap 13, Glomerular Filtration Rate 7.1L, Calcium Level 8.9 12/28/19 12:31: Clostridium difficile [id number] PRESUMPTIVE NEGATIVE, Clostridium difficile Toxin (PCR) NEGATIVE CBC/BMP Laboratory Tests 12/28/19 05:55 Microbiology Microbiology 12/27/19 Respiratory Virus Panel (PCR) ([facility]) - Final, Complete Current Medications Current Medications Medications (Trade) Dose Ordered Sig/Adam Route PRN Reason Start Time Stop Time Status Last Admin Dose Admin Acetaminophen (Tylenol Tab) 650 mg Q4HP PRN PO PAIN OR FEVER 12/26/19 11:00 12/28/19 06:19 Alprazolam (Xanax) 0.5 mg QID PRN PO ANXIETY/AGITATION 12/23/19 06:45 12/28/19 13:06 Amlodipine Besylate (Norvasc) 5 mg BID PO 12/24/19 09:00 12/28/19 06:19 Furosemide (LASIX injection) 40 mg Q6H IV 12/23/19 03:00 12/23/19 13:33 DC 12/23/19 08:07 Heparin Sodium (Porcine) (Heparin) 5,000 units Q12H SQ 12/27/19 21:00 12/28/19 06:20 Home Med (Med Rec Complete!) ASDIRECTED XX 12/23/19 02:15 12/23/19 02:13 DC Hydralazine HCl (Apresoline) 10 mg Q6H PRN IV SEE LABEL COMMENTS 12/23/19 04:45 12/24/19 08:38 DC 12/23/19 08:07 Hydralazine HCl (Apresoline) 10 mg QID PO 12/24/19 09:00 12/28/19 13:14 Iron (Venofer) 100 mg HD IV 12/24/19 19:45 Nicotine (Nicoderm Cq 14mg) 1 patch DAILY TD 12/23/19 19:00 12/28/19 06:20 Ondansetron HCl (ZOFRAN INJection) 8 mg Q4HP PRN IV NAUSEA OR VOMITING 12/23/19 10:00 12/23/19 17:18 Quetiapine Fumarate (SEROquel) 50 mg QHS PO 12/24/19 21:00 12/26/19 12:06 DC 12/25/19 21:16 Quetiapine Fumarate (SEROquel) 100 mg QHS PO 12/23/19 21:00 12/23/19 13:28 DC Quetiapine Fumarate (SEROquel) 100 mg QHS PO 12/24/19 21:00 12/24/19 08:51 DC 12/23/19 22:17 Quetiapine Fumarate (SEROquel) 100 mg QHS PO 12/26/19 21:00 12/27/19 20:56 Allergies Coded Allergies: No Known Allergies (Unverified , 12/22/19) Abril Collado MD Dec 28, 2019 14:03
--- NOTE | 2019-12-28 16:01 | IPN ---
DATE: 12/28/2019 SUBJECTIVE: The patient was seen and examined at the bedside today morning during hemodialysis procedure. He got the left internal jugular (IJ) tunneled hemodialysis catheter procedure. The catheter is working well today. He denies any active complaint. Renal biopsy results are still pending. OBJECTIVE: VITAL SIGNS: Temperature is 99.1 degrees Fahrenheit, blood pressure 148/98, pulse is 73, respiratory rate of 24, saturating 93% on room air. INTAKE AND OUTPUT: Urine output recorded is only 150 mL. Weight in the bed scale is 112 kg which is not reliable. There is 10 kd difference between the weight yesterday and today. PHYSICAL EXAMINATION: GENERAL: The patient is awake, alert, oriented times three, laying in bed, in no apparent distress. HEAD AND NECK: Extraocular muscles intact. Pupils equally round and reactive to light. Neck is supple. He has a left internal jugular (IJ) tunneled hemodialysis catheter which is being used for dialysis. CARDIOVASCULAR: S1, S2, regular rate. No edema of the bilateral lower extremities. RESPIRATORY: Chest is clear to auscultation bilaterally. Bilateral equal air entry. No rales or rhonchi. ABDOMEN: Soft, obese, positive bowel sounds, nontender. No organomegaly. MUSCULOSKELETAL: No clubbing or cyanosis. Pulses are 2+. CENTRAL NERVOUS SYSTEM (ALMOND BLANCHER HAND): No focal deficit. Power is 5/5 in all extremities. LABORATORY REVIEW: CBC showed a WBC 10.8, hemoglobin 11.4, platelets are 262. BMP showed a sodium of 138, potassium 4.2, chloride 102, bicarbonate 23, BUN 62, creatinine is 9.25. IMMUNOLOGY: PRASHANT is negative. ANCA is negative. Wixi-puijwz-kyajxdki DNA is negative. Serum cryoglobulins are negative. Glomerular basement membrane antibody is pending so far. CURRENT INPATIENT MEDICATIONS: The patient's medications were all reviewed by myself. I have ordered a dose of Ancef 2 grams IV to be given after dialysis. No other change in the medications today as compared with yesterday. ASSESSMENT AND PLAN: 1. Acute renal failure, unknown etiology. The patient is dialysis-dependent. He is being dialyzed today. He got a CT-guided biopsy done on Thursday. Preliminary results are still pending. 2. Congestive heart failure with preserved ejection fraction. Volume status has improved. Three liters of fluid is being removed with dialysis today. 3. Iron deficiency anemia. Continue Venofer with dialysis. Hemoglobin level is optimal. 4. Hypertension. Blood pressure is controlled. Continue amlodipine and hydralazine. 5. Persistent leukocytosis. The patient has mild persistent and worsening leukocytosis. He is afebrile. However, he had two procedures [id number] including a kidney biopsy and placement of a tunneled dialysis catheter and he had a temporary dialysis catheter that was recently removed from his neck. I am going to cover this patient with IV Ancef.
[2019-12-28] MEDS: QUEtiapine FUMARATE 100 MG TAB PO SCH (20:37)
[2019-12-28 22:00] VITALS: BP 142/100
[2019-12-28 23:45] VITALS: BP 150/110
[2019-12-29] MEDS: ACETAMINOPHEN TAB 650MG DOSE (2X325MG) PO PRN (00:58)
[2019-12-29 02:20] VITALS: BP 140/100
[2019-12-29 06:42] LABS: HEMOGLOBIN 12.5 g/dl (13.5-17.5); MEAN CORPUSCULAR HEMOGLOBIN 29.3 pg (27.0-33.0); MEAN CORPUSCULAR HGB CONC 33.8 g/dl (32.0-36.5); MEAN CORPUSCULAR VOLUME 86.9 fl (80.0-96.0); PLATELET COUNT, AUTOMATED 282 10^3/uL (150-450); RED BLOOD COUNT 4.26 10^6/uL (4.30-6.10); WHITE BLOOD COUNT 10.8 10^3/uL (4.0-10.0)
[2019-12-29 07:06] LABS: CALCIUM LEVEL 9.2 MG/DL (8.5-10.1); CREATININE FOR GFR 6.95 MG/DL (0.70-1.30); GLOMERULAR FILTRATION RATE 9.9 (>60)
[2019-12-29] MEDS: **hydrALAZINE** 10 MG TAB PO SCH (08:00)
[2019-12-29] MEDS: NICOTINE 14 MG/24 HR TRANSDERMAL TD SCH (08:00)
[2019-12-29] MEDS: ALPRAZolam 0.5 MG TAB PO PRN ×2 (08:00→13:15)
[2019-12-29] MEDS: amLODIPine 5 MG TAB PO SCH (08:00)
[2019-12-29] MEDS: HEPARIN SOD (PORCINE) 5000UNITS/ML VIAL (J1644 PER 1000UNITS) SQ SCH (08:00)
[2019-12-29] MEDS ORDERED: CARVedilol 6.25 MG TAB PO SCH (09:00)
[2019-12-29 10:44] VITALS: BP 140/78
[2019-12-29] MEDS ORDERED: AMLO5TAB6 PO (14:12)
[2019-12-29] MEDS ORDERED: CARV6.25 PO (14:12)
--- NOTE | 2019-12-29 15:54 | IPN ---
DATE: 12/29/2019 SUBJECTIVE: The patient was seen and examined at the bedside today morning. He is afebrile, hemodynamically stable. He was dialyzed yesterday. He tolerated the hemodialysis procedure well. Three liters of fluid was removed. There are no signs of renal recovery. He remains oliguric. I discussed the pathology results with [facility] and [facility] Department of Renal Pathology today, and I was told that patient's renal pathology shows severe acute tubular necrosis. OBJECTIVE: Vital signs: Temperature is 99.3 degrees Fahrenheit, blood pressure 140/100, pulse is 91, respiratory rate of 22, saturating 94% on room air. Intake and output: Urine output recorded is 470 mL. Ultrafiltration with hemodialysis was 3 liters. Weight in the bed scale is not available today. PHYSICAL EXAMINATION: GENERAL: The patient is awake, alert, oriented times three, lying in bed in no apparent distress. HEAD AND NECK: Extraocular muscles intact. Pupils equally round and reactive to light. Mucous membranes are moist. Neck is supple. He has a left internal jugular (IJ) tunneled hemodialysis catheter. CARDIOVASCULAR: S1, S2, regular rate. No edema of the bilateral lower extremities. RESPIRATORY: Chest is clear to auscultation bilaterally. Bilateral equal air entry. No rales or rhonchi. ABDOMEN: Soft, obese, positive bowel sounds. Nontender. No organomegaly. MUSCULOSKELETAL: No clubbing or cyanosis. Pulses are 2+. CENTRAL NERVOUS SYSTEM: No focal deficit. Power is 5/5 in all extremities. LABORATORY REVIEW: CBC showed WBC of 10.8, hemoglobin is 12.5, platelets are 282. BMP showed sodium 137, potassium is 4, chloride 101, bicarbonate 25, BUN 38, creatinine is 6.9. IMMUNOLOGY: There is no new immunology available today as compared with yesterday. Clostridium (C) difficile came back negative. CURRENT INPATIENT MEDICATIONS: The patient's medications were all reviewed by myself. There is no significant change in the medications today as compared with yesterday. ASSESSMENT AND PLAN: 1. Acute oliguric renal failure. Patient's renal pathology preliminary result came back as severe acute tubular necrosis. No need of immunosuppression at this time. He continues to be dialysis dependent. I am hopeful that his renal function might recover over the next few weeks. He can continue dialysis as outpatient. 2. Congestive heart failure with preserved ejection fraction. The patient's volume status is significantly better. Fluid status will be optimized with dialysis as outpatient. 3. Iron deficiency anemia. The patient is getting Venofer with dialysis. Hemoglobin level has improved. 4. Hypertension. Blood pressure levels are optimized. I have started the patient on beta christopher, carvedilol 6.25 mg by mouth twice a day along with amlodipine. I am going to stop the hydralazine at this time for better compliance as outpatient. DISPOSITION: The patient has a Thursday, Thursday, Thursday evening spot available for dialysis as outpatient. He is optimized from a nephrology standpoint to be discharged home. Plan of care was discussed with the hospitalist Dr. Abril Collado.
--- NOTE | 2019-12-29 17:29 | DS.PDOC ---
Discharge Summary General Date of Admission Dec 23, 2019 at 02:38 Date of Discharge 12/29/19 Attending Physician: Abril Collado MD Specialist/Consultants Involve: A Discharge Summary HISTORY OF PRESENT ILLNESS: Patient is a 29-year-old male with past medical history of insomnia and anxiety presents with worsening shortness of breath for the past few days. His symptoms started 2-3 days ago with dyspnea, nausea/dry heaving, progressive fatigue and dry cough. Patient also reports a weight gain of 20 pounds over the past week or so. He went camping 5 days ago, apparently "fell" while he was camping and has cuts and bruises over his entire body. He also reports decreased urine output for the past week or so. He has no other symptoms at this time. He denies any chest pain, abdominal pain or diarrhea. In the ER, he is found to have acute renal failure and imaging consistent with cardiomegaly/congestive heart failure. Of note, he was a heavy drinker previously, reportedly quit 1 year ago. HOSPITAL COURSE: Nephrology was consulted and patient under went hemodialysis. Over the course of his hospital stay, >13 liters of fluid was removed during hemodialysis, tunneled catheter was place. He remained oliguric. CHF improved slowly. He had diarrhea for one day, c. diff was neg by PCR. Patient had renal biopsy done which returned on 12/29/19 showing acute tubular necrosis. It was decided patient would be discharged on 12/29/19 with close follow up by PCP, nephrology. He will continue hemodialysis MWF. At the time of discharge, patient denied chest pain, n/v/d, fevers or chills. ROS: Negative except for what is mentioned above. PAST MEDICAL HISTORY: 1. Acute oliguric renal failure likely 2/2 to acute tubular necrosis 2. CHF with preserved EF 3. CHUCKIE 4. HTN 5. Tobacco use PAST SURGICAL HISTORY: 1. Tonsillectomy SOCIAL HISTORY: Current smoker Previous alcoholic, quit 1 year ago. Denies drug use FAMILY HISTORY: Father had heart disease ALLERGIES: Please see below. DISCHARGE MEDICATION: Please see below PHYSICAL EXAMINATION: CONSTITUTIONAL: No acute distress, resting comfortably, AAO x 3 EYES: PERRLA, EOM intact HENT, MOUTH: Normocephalic, atraumatic, moist mucous membranes NECK: SUPPLE, no JVD, no lymphadenopathy, no carotid bruit CV: Regular rate and rhythm, S1S2 normal, no murmurs/rubs/gallops CHEST: tunneled catheter in left upper chest/nape of neck RESPIRATORY: Clear to auscultation bilaterally, no rales/rhonchi/wheezes GI: BS positive in 4 quadrants, soft, nontender, nondistended, no rebound or guarding, no organomegaly : Deferred MUSCULOSKELETAL: Normal ROM. No cyanosis, clubbing, swelling, joint deformity, +1 extremity edema INTEGUMENTARY: Intact, no rashes, no lesions, no erythema NEUROLOGIC: Cranial Nerves II-XII are intact, no focal deficits PSYCHIATRIC: Mood and affect are normal CURRENT MEDICATIONS: Please see below LABORATORY DATA: Please see below IMAGING: CT abd/pelvis: Urinary bladder wall thickening and stranding of the perivesical fat. There is small extraperitoneal fluid in the presacral space and along the left pelvic sidewall extending to the space of Retzius. Correlate with urinalysis for evidence of cystitis. No hydronephrosis. Renal US: Right kidney: 12.2 cm in length. No hydronephrosis. No masses. Right renal arteries: Normal duplex of the renal artery. Duplex waveforms are within normal limits. No hemodynamically significant stenosis. Right renal vein: Patent. Left kidney: 12.2 cm in length. No hydronephrosis. No masses. Left renal arteries: Normal duplex of the renal artery. Duplex waveforms are within normal limits. No hemodynamically significant stenosis Left renal vein: Patent. IMPRESSION: No hemodynamically significant stenosis. ASSESSMENT: 29 y/o M treated for acute oliguric renal failure, congestive heart failure with preserved EF, iron deficiency anemia. PLAN: 1. Acute oliguric renal failure likely 2/2 to acute tubular necrosis (ATN). ATN seen on path from renal bx. S/p HD and tunned catheter placement. D/c today with instructions to continue HD MWF, f/u with PCP and nephrology. Avoid nephrotoxic medications after discharge. 2. Diarrhea, r/o C. diff. C. diff PCR neg. Resolved. 3. Congestive heart failure with preserved ejection fraction. Echocardiogram done this admission. C/w BB, CCB 4. Iron-deficiency anemia. S/p venofer with dialysis. C/w ferrous sulfate BID. 5. HTN. C/w CCB, BB. 6. Hepatitis surface antibody +. Most patients, anti-HBs persists for life, thereby conferring long-term immunity. This may mean patient may have been vaccinated or he may have recovered from an acute HBV infection and are no longer contagious. Unknown patient's immunization past, but does not need vaccination as he is already immune. DISPOSITION: Discharge today in improved condition with instructions about hemodialysis and follow ups. TIME SPENT ON DISCHARGE: Greater than 30minutes. Vital Signs/I&Os Vital Signs Date Time Temp Pulse Resp B/P (MAP) Pulse Ox O2 Delivery O2 Flow Rate FiO2 12/29/19 10:44 87 140/78 12/29/19 02:20 22 94 Room Air 12/28/19 23:45 99.3 12/27/19 08:30 2 12/24/19 04:00 40 I&O- Last 24 Hours up to 6 AM 12/29/19 06:00 Intake Total 1060 ml Output Total 3650 ml Balance -2590 ml Laboratory Data Labs 24H Laboratory Tests 2 12/29/19 06:18: Nucleated Red Blood Cells % (auto) 0.0, Anion Gap 11, Glomerular Filtration Rate 9.9L, Calcium Level 9.2 CBC/BMP Laboratory Tests 12/29/19 06:18 Microbiology Microbiology 12/27/19 Respiratory Virus Panel (PCR) (CHANEL) - Final, Complete Discharge Medications Scheduled Amlodipine Besylate (Amlodipine Besylate) 5 Mg Tablet, 5 MG PO BID Carvedilol (Carvedilol) 6.25 Mg Tablet, 6.25 MG PO BID Quetiapine Fumarate (Quetiapine Fumarate) 100 Mg Tablet, 100 MG PO QHS, (Reported) Scheduled PRN Alprazolam (Alprazolam) 0.5 Mg Tablet, 0.5 MG PO QID PRN for ANXIETY/AGITATION, (Reported) Allergies Coded Allergies: No Known Allergies (Unverified , 12/22/19) Abril Collado MD Dec 29, 2019 17:29
[2019-12-29] MEDS ORDERED: FERR325T3 PO (17:41)
== END 2019-12-29 17:15 | disposition home or self-care (01) | DRG 469 ==
LOC: M ED 23:09 → M ED INP 12-23 02:38 → ENRESERV 12-23 03:03 → M ICU 12-23 03:44 → M MSPAV 12-24 13:24
PROVIDERS: ADMIT Internal Medicine; ATTEND Internal Medicine
PROC: 5A1D70Z Performance of Urinary Filtration, Intermittent, Less than 6 Hours Per Day (ICD-10-PCS; 2019-12-23)
PROC: 0TB43ZX Excision of Left Kidney Pelvis, Percutaneous Approach, Diagnostic (ICD-10-PCS; 2019-12-26)
PROC: 0JH63XZ Insertion of Tunneled Vascular Access Device into Chest Subcutaneous Tissue and Fascia, Percutaneous Approach (ICD-10-PCS; 2019-12-27)
PROC: 02HV33Z Insertion of Infusion Device into Superior Vena Cava, Percutaneous Approach (ICD-10-PCS; principal; 2019-12-27 08:00)
DX: N17.0 Acute kidney failure with tubular necrosis (principal); J96.01 Acute respiratory failure with hypoxia; I11.0 Hypertensive heart disease with heart failure; E87.2 Acidosis; D50.9 Iron deficiency anemia, unspecified; F17.200 Nicotine dependence, unspecified, uncomplicated; I50.9 Heart failure, unspecified; M62.82 Rhabdomyolysis; E87.1 Hypo-osmolality and hyponatremia; R19.7 Diarrhea, unspecified; G47.00 Insomnia, unspecified; F41.9 Anxiety disorder, unspecified; E66.9 Obesity, unspecified; I16.0 Hypertensive urgency; Z68.34 Body mass index [BMI] 34.0-34.9, adult; R31.9 Hematuria, unspecified; D72.829 Elevated white blood cell count, unspecified

== ENCOUNTER → 2020-02-01 | Outpatient (CLI) | payer BC ==
[~2020-02-01] MED LIST: ALPR0.5T3 PO; AMLO1TAB24 PO; CARV6.25 PO; FERR325T3 PO; LIDOCAINE W/EPINEPHRINE 1% 20ML VIAL As Ordered ONE; QUET100T2 PO
[2020-02-01 09:05] VITALS: BP 144/92
--- NOTE | 2020-02-01 09:32 | ROOPDOC ---
[facility] Report Of Operation Report of Operation DATE OF PROCEDURE: 02/01/20 PREPROCEDURE DIAGNOSES: Acute renal insufficiency, resolved POSTPROCEDURE DIAGNOSES: Same PROCEDURE: Removal left IJ PermCath SURGEON: Peter Wills MD ANESTHESIA: Local anesthesia 7 mL lidocaine with epinephrine. INDICATION FOR PROCEDURE: This very pleasant 29-year-old patient with recent history of acute renal insufficiency requiring access for dialysis, now no longer requiring access for dialysis due to recovery of renal function. Risks benefits and alternatives to PermCath removal were explained to the patient he i s agreeable to proceed. Informed consent was obtained. REPORT OF OPERATION: The patient's left neck and chest were prepped and draped in a sterile fashion. A timeout was performed. Local anesthesia was administered to skin and subcutaneous tissue around the exit site of the catheter in the left chest. The sutures were removed. Blunt dissection was used to loosen the cuff from the subcutaneous tissue. Pressure was held on the left neck and the catheter was removed. The catheter was inspected, and the cuff in the tips were intact, no portion was left behind. Pressure was held for 10 minutes and sterile dressings were applied. Good hemostasis was noted. The patient was monitored for 30 minutes postprocedure and then discharged in stable condition. He tolerated the procedure well. ESTIMATED BLOOD LOSS: Approximately 1 mL. COMPLICATIONS: None. PLAN: Okay to resume home diet medications. Keep head elevated for the most of the day. Try to avoid laying flat or bending over at the waist to minimize risk of bleeding and bruising left neck. Okay to remove dressing and shower tomorrow. Replace a dry dressing if needed, or leave open to air if no drainage is noted. We appreciate the opportunity to participate in the care of this patient. PETER WILLS MD Feb 01, 2020 09:32
== END ==
LOC: M IRPRO 07:42
PROVIDERS: ATTEND Surgery Vascular Surgery
DX: N18.4 Chronic kidney disease, stage 4 (severe) (principal); I50.9 Heart failure, unspecified; D64.9 Anemia, unspecified; F10.10 Alcohol abuse, uncomplicated; F17.210 Nicotine dependence, cigarettes, uncomplicated

== ENCOUNTER 2020-02-14 06:00 | Inpatient (IN) | payer BC ==
[~2020-02-14 06:00] MED LIST changes: -LIDOCAINE W/EPINEPHRINE 1% 20ML VIAL As Ordered ONE
[2020-02-14] MEDS ORDERED: NICOTINE 14 MG/24 HR TRANSDERMAL ONE (14:35)
[2020-02-14] MEDS ORDERED: ALPRAZolam 0.5 MG TAB ONE (18:01)
[2020-02-15] MEDS ORDERED: NICOTINE 14 MG/24 HR TRANSDERMAL ONE (08:53)
[2020-02-15] MEDS ORDERED: ALPRAZolam 0.5 MG TAB ONE (08:53)
--- NOTE | 2020-03-20 09:20 | CR ---
DATE: 02/14/2020 REASON FOR CONSULTATION: This is a consultation note for the hospitalist, I was called Dr. Hogue. CHIEF COMPLAINT: The patient has taken an overdose. SUBJECTIVE: He is 29 years old, and as far as I know he is single. It should be noted that computer systems technology is down, so I have no access to previous records, the chart is reviewed as best I can. The patient came to the hospital. He is not quite sure how, says possibly was in an ambulance and that his mother or neighbors may have found out that he was ill. He had taken an overdose. He says that he was at work, his boss at work had suggested that he seek medical help, he implied psychiatric help, the patient implied psychiatric help. Since the last couple of years, he got the impression that others were out to get him, or there may be a truck that he sees, which he says appears like his neighbors truck, is somewhat vague on this, but also says that he has been hearing voices. He says there are two voices a male and a female, they talk about him, derogatory in nature, but he denies any command hallucinations. Says when it first started, he did not think much of it, but it seemed to intensify over the last year or so. He says he did not talk much about this with anyone, but some of his clinicians were aware and at some point he was started on Seroquel. He later suggested Seroquel was started when he was rehab. He returned to rehab for alcohol. He was says it was 1.6 years ago, and he says that on a couple of occasions says it was at [facility]. He denies he went for any outpatient care, possibly one visit to an outpatient facility at [facility]. The patient has been seeing his primary care, Alysa Cruz, and says he has prescribed Xanax at 2 mg daily. The patient, however, has been using 3.5 mg. He suggests that he tends to ration them, never runs out. He takes them regularly. Says he has been on benzodiazepine for the last 10 years or so, for the better part of those 10 years. He says he had asked his primary care to taper him off the Xanax recently and to switch him over to Valium to do that, but the primary care declined. He says the voices, in the sense that others were talking about him or plotting against intensified lately and he was at work when he saw a truck, which looked like his neighbors, says this disturbed even more, says that this was yesterday and that he took Xanax, tizanidine, says the tizanidine belongs to an old lady and that he took it as he has had back pain. Says it has also taken one Ritalin, which he gotfrom a friend.. He took a substantial amount of Xanax as well and the Seroquel. He is also on Benadryl that he overdosed on apparently. He denies it was an intent to kill himself. Says he had found the voices coming including from his neighbors, getting louder. He was quite concerned that he has not had any Xanax after the overdose. He says he has had a seizure coming off Xanax when at rehab 1 and half years ago. 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 He denies drinking any alcohol with any irregularity lately, but does say that he took some recently. Again, is somewhat vague about this. Denies using any methamphetamines or any hallucinogens. PAST PSYCHIATRIC HISTORY: Denies seeing a psychiatrist with any regularity. Says has been asked to be referred to one and has inclined seeing a counselor. 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 Also does suggests hears the voices when he is not using the Xanax or drinking, but acknowledges has not been without any benzodiazepines. FAMILY PSYCHIATRIC HISTORY: Positive for difficulties with alcohol particularly, other drugs as well. His father is dependent alcohol, one of his younger brothers as well uses methamphetamine. MEDICAL HISTORY: Says has been treated for renal failure, congestive heart failure, but the details are unknown. He has had also had a few concussions, but did not go into details. SOCIAL HISTORY: Not quite clear on that, but he says he has a couple of other siblings. His parents are around. He is in contact with them. He implies he stays on his own. He has been working at the current job for the last almost two years. MENTAL STATUS EXAM: He is lying in bed, a bit guarded, but generally cooperative, as involuntary movements of the upper arms, parts of his trunk and the lower limbs as well on occasions. No psychomotor retardation. Coherent for the most part, but at times has a hard time following the conversation, but only for a short while. Affect looks somewhat puzzle, but reactive. Denies any suicidal thoughts or intents. Denies any homicidal ideas or intents. At present, does not appear to be internally preoccupied, but has possible paranoid ideations in that others may be talking about him, but has some insight into this. Generally, alert, but at times difficulties in maintaining attention. He is oriented to place and person. Can spell the word house forwards and backwards. Can recall three out of three objects after 5 minutes. Intellect average. Judgment and insight are compromised. ASSESSMENT: 1. Psychotic disorder, not otherwise specified. 2 Benzodiazepine use disorder. 3. Alcohol use disorder. 4. Status post overdose. 5. Rule out delirium (neurocognitive disorder, possibly secondary to overdose) 6. Rule out benzodiazepine withdrawal. He has been experiencing auditory hallucinations with possible ideas of , and paranoia for the last couple of years. He is also dependent and misusing benzodiazepines, particularly Xanax. Has a history of Xanax withdrawal with seizures, last 1 years ago in rehab at [facility]. Has taken a substantial overdose when disturbed by auditory hallucinations and possible paranoid ideations. He denies it was an attempt at suicide. Has involuntary movements of his upper limbs, mostly, unclear if this is due to the overdose or it predates that. He may well be minimizing his alcohol intake. It is unclear if he has used any hallucinogens. RECOMMENDATIONS: Consider using Xanax for example 1 mg twice a day temporarily to help prevent withdrawal and seizures related to it. The alternative would be to use an equivalent dose of lorazepam. (He says he uses Xanax at 32.5 mg daily, though prescribed 2 mg a day by primary care, intents to ration them.) Continue current care to help medical stabilization. Once fully medically stabilized, he needs inpatient psychiatric hospitalization for further management. He meets criteria for involuntary hospitalization. Thank you for this consult. If you have any questions, please call. The assessment took 35 minutes. MARCIO
--- NOTE | 2020-03-29 10:55 | ECGEPIP ---
SINUS RHYTHM MINIMAL VOLTAGE CRITERIA FOR LVH, CONSIDER NORMAL VARIANT BORDERLINE ECG NONSPECIFIC ST & T-WAVE ABNORMALITY NO OLD AVAILABLE SEE SCANNED DOWNTIME REPORT MTDD
--- NOTE | 2020-04-04 13:53 | ECGEPIP ---
[facility] Test Date: 2020-02-15 Pat Name: RAFI MAYER Department: Room: [place] [address] Gender: Male Medical Imaging Specialist: UMESH : 1990 Requested By: CORNEL COPPOLA Order Number: [id number] Reading MD: Alessandro Smith Measurements Intervals [place] Rate: 46 P: 26 SC: 145 QRS: 5 QRSD: 96 T: 21 QT: 489 QTc: 428 Interpretive Statements SINUS BRADYCARDIA NORMAL EKG COMPARISON TRACING N/A SEE SCANNED DOWNTIME REPORT
[2020-04-05 12:05] LABS: BASO % 0.6 % (0.0-1.0); EOS # 0.1 10^3/uL (0.0-0.5); EOS % 0.8 % (0.0-3.0); HEMATOCRIT 38.1 % (42.0-52.0); HEMOGLOBIN 12.8 g/dl (13.5-17.5); LYMPH % 27.5 % (24.0-44.0); MEAN CORPUSCULAR HEMOGLOBIN 30.1 pg (27.0-33.0); MEAN CORPUSCULAR HGB CONC 33.6 g/dl (32.0-36.5); MEAN CORPUSCULAR VOLUME 89.6 fl (80.0-96.0); MONO # 0.5 10^3/uL (0.0-0.8); MONO % 6.5 % (0.0-5.0); NEUTROPHILS # 4.6 10^3/uL (1.5-8.5); NEUTROPHILS % 64.3 % (36.0-66.0); PLATELET COUNT, AUTOMATED 281 10^3/uL (150-450); RED BLOOD COUNT 4.25 10^6/uL (4.30-6.10); WHITE BLOOD COUNT 7.2 10^3/uL (4.0-10.0)
[2020-04-14 08:36] LABS: BASO % 0.6 % (0.0-1.0); EOS # 0.2 10^3/uL (0.0-0.5); EOS % 2.5 % (0.0-3.0); HEMATOCRIT 35.2 % (42.0-52.0); HEMOGLOBIN 11.6 g/dl (13.5-17.5); LYMPH # 2.4 10^3/uL (1.5-5.0); LYMPH % 37.1 % (24.0-44.0); MEAN CORPUSCULAR HEMOGLOBIN 30.4 pg (27.0-33.0); MEAN CORPUSCULAR VOLUME 92.1 fl (80.0-96.0); MONO # 0.4 10^3/uL (0.0-0.8); MONO % 6.5 % (0.0-5.0); NEUTROPHILS # 3.4 10^3/uL (1.5-8.5); PLATELET COUNT, AUTOMATED 214 10^3/uL (150-450); RED BLOOD COUNT 3.82 10^6/uL (4.30-6.10); WHITE BLOOD COUNT 6.4 10^3/uL (4.0-10.0)
[2020-04-29 12:34] LABS: ACETAMINOPHEN LEVEL < 2.0 UG/ML (10.0-30.0); ALT/SGPT 29 U/L (12-78); BILIRUBIN,DIRECT 0.2 MG/DL (0.0-0.2); BILIRUBIN,TOTAL 0.7 MG/DL (0.2-1.0); BLOOD UREA NITROGEN 10 MG/DL (7-18); CALCIUM LEVEL 9.2 MG/DL (8.5-10.1); CARBON DIOXIDE LEVEL 26 MEQ/L (21-32); CHLORIDE LEVEL 106 MEQ/L (98-107); CPK CREATINE PHOSPHOKINASE 430 U/L (39-308); CREATININE FOR GFR 1.26 MG/DL (0.70-1.30); ETHYL ALCOHOL (ETHANOL) 0.031 % (0.000-0.010); GLOMERULAR FILTRATION RATE > 60.0 (>60); GLUCOSE, FASTING 90 MG/DL (70-100); POTASSIUM SERUM 3.9 MEQ/L (3.5-5.1); SALICYLATE LEVEL < 1.7 MG/DL (5.0-30.0); SODIUM LEVEL 139 MEQ/L (136-145); TOTAL PROTEIN 7.3 GM/DL (6.4-8.2)
[2020-04-29 12:34] LABS: AMPHETAMINES LEVEL URINE NEGATIVE (NEGATIVE); BARBITURATES URINE NEGATIVE (NEGATIVE); BENZODIAZEPINES URINE POSITIVE (NEGATIVE); CANNABINOIDS URINE NEGATIVE (NEGATIVE); COCAINE METABOLITE URINE NEGATIVE (NEGATIVE); METHADONE URINE NEGATIVE (NEGATIVE); OPIATES URINE NEGATIVE (NEGATIVE); PHENCYCLIDINE URINE NEGATIVE (NEGATIVE)
[2020-05-09 20:16] LABS: ALBUMIN 3.4 GM/DL (3.2-5.2); ALT/SGPT 23 U/L (12-78); BILIRUBIN,TOTAL 0.4 MG/DL (0.2-1.0); BLOOD UREA NITROGEN 12 MG/DL (7-18); CALCIUM LEVEL 8.1 MG/DL (8.5-10.1); CARBON DIOXIDE LEVEL 28 MEQ/L (21-32); CHLORIDE LEVEL 111 MEQ/L (98-107); CREATININE FOR GFR 1.05 MG/DL (0.70-1.30); GLOMERULAR FILTRATION RATE > 60.0 (>60); GLUCOSE, FASTING 87 MG/DL (70-100); POTASSIUM SERUM 4.1 MEQ/L (3.5-5.1); SODIUM LEVEL 141 MEQ/L (136-145); TOTAL PROTEIN 6.1 GM/DL (6.4-8.2)
== END 2020-02-15 09:00 | DRG 812 ==
LOC: M ED 06:00 → M PCU 07:47
PROVIDERS: ADMIT Internal Medicine; ATTEND Internal Medicine
DX: T44.3X4A Poisoning by other parasympatholytics [anticholinergics and antimuscarinics] and spasmolytics, undetermined, initial encounter (principal); T42.8X4A Poisoning by antiparkinsonism drugs and other central muscle-tone depressants, undetermined, initial encounter; G47.00 Insomnia, unspecified; F41.9 Anxiety disorder, unspecified; F32.9 Major depressive disorder, single episode, unspecified; G25.71 Drug induced akathisia; F10.10 Alcohol abuse, uncomplicated

== ENCOUNTER 2020-02-20 16:12 | Emergency (ER) | payer BC ==
[2020-02-20] MEDS ORDERED: EPINEPHrine 1MG/10ML SYRINGE 1.5IN ONE ×2 (16:13)
[2020-02-20] MEDS ORDERED: NALOXONE INJ 0.4MG/1ML VIAL (J2310 PER 1MG) ONE (16:13)
[2020-02-20] MEDS ORDERED: SODIUM BICARBONATE 8.4% INJ 50 ML SYRINGE ONE ×3 (16:13→17:06)
[2020-02-20] MEDS ORDERED: flumazeniL 0.5 MG/5 ML VIAL ONE (16:25)
[2020-02-20] MEDS ORDERED: flumazeniL 0.5 MG/5 ML VIAL As Ordered ONE (16:25)
[2020-02-20] MEDS ORDERED: NOREPINEPHRINE 4 MG/4 ML AMP ONE (17:06)
[2020-02-20] MEDS ORDERED: NOREPINEPHRINE 4 MG/4 ML AMP As Ordered ONE (17:06)
[2020-02-20] MEDS ORDERED: SODIUM BICARBONATE 8.4% INJ 50 ML SYRINGE As Ordered ONE (17:08)
--- NOTE | 2020-03-27 09:56 | ECGEPIP ---
[facility] - ED Test Date: 2020-02-20 Pat Name: RAFI MAYER Department: Room: - Gender: Male Shipping Hand: CARINA : 1990 Requested By: JASWANT Lo Order Number: [id number] Reading MD: Hayden Benz Measurements Intervals [place] Rate: 189 P: NM: 0 QRS: 27 QRSD: 110 T: 0 QT: 195 QTc: 346 Interpretive Statements SINUS TACHYCARDIA NONSPECIFIC ST & T-WAVECHANGES NO CHANGE IVCD SEE DOWNTIME SCANNED REPORT
--- NOTE | 2020-03-28 21:04 | ECGEPIP ---
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
--- NOTE | 2020-04-02 10:03 | REP ---
PORTABLE CHEST X-RAY HISTORY: Intubated patient. COMPARISON: Chest x-ray 12/25/2019. FINDINGS: Endotracheal tube is seen with its tip at the origin of the right mainstem bronchus. This should be withdrawn 2-3 cm and nasogastric tube enters the left upper quadrant. Monitoring electrodes are seen overlying the chest. There is no evidence of pneumothorax or hydrothorax. Lungs are under-inflated. Increased parenchymal markings are seen in the right upper lobe consistent with infiltrate. There are air bronchograms and increased density in the left perihilar region. IMPRESSION: Bilateral infiltrates. Endotracheal tube at the origin of the right mainstem bronchus. Nasogastric tube enters the left upper quadrant. Question aspiration. MTDD
[2020-04-06 22:12] LABS: BASO # 0.1 10^3/uL (0.0-0.2); BASO % 0.8 % (0.0-1.0); EOS % 0.1 % (0.0-3.0); HEMATOCRIT 36.2 % (42.0-52.0); HEMOGLOBIN 10.9 g/dl (13.5-17.5); LYMPH # 2.6 10^3/uL (1.5-5.0); LYMPH % 26.8 % (24.0-44.0); MEAN CORPUSCULAR HEMOGLOBIN 30.9 pg (27.0-33.0); MEAN CORPUSCULAR HGB CONC 30.1 g/dl (32.0-36.5); MEAN CORPUSCULAR VOLUME 102.5 fl (80.0-96.0); MONO # 0.5 10^3/uL (0.0-0.8); MONO % 5.3 % (0.0-5.0); NEUTROPHILS # 5.7 10^3/uL (1.5-8.5); NEUTROPHILS % 58.1 % (36.0-66.0); PLATELET COUNT, AUTOMATED 204 10^3/uL (150-450); RED BLOOD COUNT 3.53 10^6/uL (4.30-6.10); WHITE BLOOD COUNT 9.8 10^3/uL (4.0-10.0)
[2020-04-25 08:21] LABS: INR 2.04; PARTIAL THROMBOPLASTIN TIME 36.5 SECONDS (24.2-38.5); PROTHROMBIN TIME 23.5 SECONDS (12.5-14.3)
[2020-05-05 22:17] LABS: ACETAMINOPHEN LEVEL 2.9 UG/ML (10.0-30.0); ALBUMIN 2.6 GM/DL (3.2-5.2); ALT/SGPT 3578 U/L (12-78); BILIRUBIN,DIRECT 0.1 MG/DL (0.0-0.2); BILIRUBIN,TOTAL 0.5 MG/DL (0.2-1.0); BLOOD UREA NITROGEN 19 MG/DL (7-18); CARBON DIOXIDE LEVEL 20 MEQ/L (21-32); CHLORIDE LEVEL 104 MEQ/L (98-107); CK-MB VALUE MASS 43.8 NG/ML (<3.6); CPK CREATINE PHOSPHOKINASE 9466 U/L (39-308); CREATININE FOR GFR 3.25 MG/DL (0.70-1.30); ETHYL ALCOHOL (ETHANOL) < 0.003 % (0.000-0.010); GLOMERULAR FILTRATION RATE 23.8 (>60); GLUCOSE, FASTING 15 MG/DL (70-100); MB/CK RELATIVE INDEX 0.46 (< OR =4); POTASSIUM SERUM 7.5 MEQ/L (3.5-5.1); SALICYLATE LEVEL < 1.7 MG/DL (5.0-30.0); SODIUM LEVEL 143 MEQ/L (136-145); TOTAL PROTEIN 5.3 GM/DL (6.4-8.2)
== END 2020-02-20 17:27 | disposition expired ==
LOC: M ED 16:12
DX: I46.9 Cardiac arrest, cause unspecified (principal)
CPT/HCPCS: 71045; 80048; 80076; 82550; 82553; 82803; 85025; 85610; 85730; 93005; 96374; 96375; 99285; G0480; J2310